=== PATIENT | female | born 1965 | race Caucasian/White ===

== ENCOUNTER 2021-03-07 11:54 | Emergency (ER) | payer SELFPAY ==
[2021-03-07 12:00] VITALS: BP 172/110; PULSE 128; RESP 20; TEMP 36.8; O2SAT 95
--- NOTE | 2021-03-07 12:23 | W.ED.GENAD ---
Discharge Plan Disposition Patient Disposition: HOME Condition: Good Discharge Details Clinical Impression: Bleeding nose Primary Care Provider: Kristen Stanton ED Provider: Darrel Forrest Home Meds and New Rx's Prescriptions: Continued iron 325 MG capsule, extended release 325 mg PO .QOD RF: 0 cyanocobalamin (vitamin B-12) 500 MCG tablet,disintegrating 500 mcg Sublingual DAILY RF: 0 ranitidine HCl 150 MG tablet 150 mg PO BID PRNQty: 180 RF: 4 ascorbate calcium (vitamin C) 500 MG tablet 500 mg PO .QOD RF: 0 magnesium oxide 500 MG capsule 500 mg PO DAILY RF: 0 ibuprofen [Advil] 200 MG tablet 400 mg PO BID PRNRF: 0 Discharge Instructions Instructions: Nosebleed (ED) Additional Instructions: At this time the bleeding in your nose has stopped after the chemical cauterization. There is a small lesion in your nose that may continue to bleed in the future. If this occurs please use the nose clamp that we provided. As we discussed it would be best to do methods to prevent future bleeding. Please wear a mask to help increase the moisture around your nose. Please place bacitracin or triple antibiotic ointment in your nose 3 times per day. Please to sleep with a humidifier at your bed, and do not point the fan at you during the night. If you have continued bleeding you may require follow-up with an ear nose throat doctor. If you notice any worsening of your symptoms, or any new symptoms such as vomiting, diarrhea, fever, chills, shortness of breath, chest pain, numbness, weakness, or fainting , please return immediately to the emergency department for reevaluation. Please follow up with your primary care provider as soon as possible for reassessment and reevaluation. As always, it was a pleasure participating in your medical care today. Referrals: Kristen Stanton MD [Primary Care Provider] - Discharge Data Discharge Date/Time-TO BE ENTERED AT DEPARTURE: 03/07/21 12:30 Medical Decision Making 55-year-old female with past medical history of nosebleeds presents today for evaluation of nosebleed. Patient states that over the last 5 weeks is has gotten hot and she has been using significant amount of the AC she has noted that she has had increased nosebleeds on the left-hand side. She works in front of a [employer], and so she also gets a significant amount of dry heat throughout the day. Occasionally the nosebleeds will be very benign, however today she noted that it was somewhat more significant. It occurred while she was in the shower and rubbing her nose. She denies any lightheadedness or syncope. She denies any history of bleeding diatheses. She denies any family history of bleeding issues. No other complaints at this time. Patient's nose demonstrates no active bleeding at this time, no persistent bleeding in the posterior oropharynx. Left nare demonstrates a small scab/irritated lesion that looks to appear to have been bleeding previously. The area was chemically cauterized with silver nitrate. No more bleeding occurred. Patient tolerated this well. Patient was observed to make sure there was no rebleeding. She did not have any. Patient stable for discharge. Recommend lifestyle modification including wiping antibiotic ointment to the nose daily, using humidifier, and avoiding dry air. Discussed red flags which to return. I have extensively reviewed the treatment plan and discharge instructions with the patient. I have addressed all patient concerns at this time. The patient was made aware of what symptoms to monitor for that would warrant a return to the emergency department. Discussed the plan with the patient, they demonstrate verbal understanding and agreement with our assessment and plan at this time. The documentation in this chart was dictated using [employer] dictation software. Please excuse any dictation errors. HPI General Date/Time Provider Initiated Documentation: 03/07/21 12:03. HPI Narrative: 55-year-old female with past medical history of nosebleeds presents today for evaluation of nosebleed. Patient states that over the last 5 weeks is has gotten hot and she has been using significant amount of the AC she has noted that she has had increased nosebleeds on the left-hand side. 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 Occasionally the nosebleeds will be very benign, however today she noted that it was somewhat more significant. It occurred while she was in the shower and rubbing her nose. She denies any lightheadedness or syncope. She denies any history of bleeding diatheses. She denies any family history of bleeding issues. No other complaints at this time. Related Data Home Medications Medication Instructions Recorded Confirmed cyanocobalamin (vitamin B-12) 500 mcg SUBLINGUAL DAILY 03/28/16 03/07/21 iron 325 mg PO .QOD 03/28/16 03/07/21 ascorbate calcium (vitamin C) 500 mg PO .QOD 06/04/17 03/07/21 ibuprofen [Advil] 400 mg PO BID PRN 06/04/17 03/07/21 magnesium oxide 500 mg PO DAILY 06/04/17 03/07/21 ranitidine HCl 150 mg PO BID PRN #180 tab 07/02/17 03/07/21 Allergies Allergy/AdvReac Type Severity Reaction Status Date / Time adhesive Allergy Unknown Unverified 03/07/21 12:04 twinings green tea Allergy Severe Anaphylaxsi Uncoded 03/07/21 12:04 s latex exam gloves Allergy rash Uncoded 03/07/21 12:04 General Stated Complaint: Epistaxis JOSE ROBERTO: 3 Review of Systems All systems reviewed & are unremarkable except as noted in HPI and below PFSH Medical History Arthritis Surgical History Appendectomy Repair of inguinal hernia Family History Grandfather Heart disease Social History Smoking/Tobacco Use Status: Current every day Smoking risk assessment performed?: Yes Alcohol Intake: never Drug use: Never Substance use type: does not use Do you feel safe at home: Yes Do you feel safe in your relationship?: Yes Exam Narrative Exam Narrative: 1.Const: Well-nourished, Well-developed, appearing stated age 2.Eyes: PERRL, no conjunctival injection, and symmetrical lids. 3.ENT: Atraumatic external nose and ears. Moist MM. Neck: Symmetric, trachea midline, No thyromegaly. Patient's nose demonstrates no active bleeding at this time, no persistent bleeding in the posterior oropharynx. Left nare demonstrates a small scab/irritated lesion that looks to appear to have been bleeding previously. The area was chemically cauterized with silver nitrate. No more bleeding occurred. Patient tolerated this well. 4.CVS: +S1/S2, No murmurs or gallops. Peripheral pulses 2+ and equal in all extremities. Brisk capillary refill in all extremities. 5.RESP: Unlabored respiratory effort. Clear to auscultation bilaterally. No wheezes rales or rhonchi 6.GI: Soft, Nontender/Nondistended, No hepatosplenomegaly. No guarding or rebound. 7.MSK: Normocephalic/Atraumatic, Extremities w/o deformity or ttp No cyanosis or clubbing, Normal movement of all extremities 8.Skin: Warm, Dry. No rashes or lesions. 9.Neuro: dispensing optician II-XII grossly intact. Sensation grossly intact, no focal neurologic deficits. 10.Psych: (AAO) x3. Appropriate mood and affect Course Vital Signs Vital signs: Vital Signs Temperature 36.8 C 03/07/21 12:00 Pulse 128 H 03/07/21 12:00 Respiratory Rate 20 03/07/21 12:00 Blood Pressure 172/110 H 03/07/21 12:00 Pulse Oximetry 95 03/07/21 12:00 Temperature 36.8 C 03/07/21 12:00 Temperature Source Skin 03/07/21 12:00 Pulse 128 H 03/07/21 12:00 Respiratory Rate 20 03/07/21 12:00 Respiratory Effort Non-Labored 03/07/21 12:04 Blood Pressure 172/110 H 03/07/21 12:00 Blood Pressure Position Sitting 03/07/21 12:00 Pulse Oximetry 95 03/07/21 12:00 Oxygen Delivery Method Room Air 03/07/21 12:00 Oxygen Flow Rate 0 03/07/21 12:00 Pain Level 0 03/07/21 12:00
[2021-03-07] MEDS: Silver Nitrate Stick 1 EACH (12:26)
[2021-03-07 12:27] VITALS: BP 142/80; PULSE 95
== END 2021-03-07 12:30 | disposition home or self-care (01) ==
PROVIDERS: Emergency Provider Student in an Organized Health Care Education/Training Program; PCP Internal Medicine
DX: R04.0 Epistaxis (principal)
CPT/HCPCS: 30901

== ENCOUNTER 2022-03-30 12:48 | Emergency (ER) | payer SELFPAY ==
[2022-03-30 13:06] VITALS: BP 167/101; PULSE 111; RESP 16; TEMP 37.1; O2SAT 94
[2022-03-30] MEDS: Silver Nitrate Stick 1 EACH (13:50)
[2022-03-30] MEDS: Cellulose,Oxidized 2X3 PKT 1 EACH MC ×2 (14:00→14:36)
[2022-03-30 14:39] LABS: Abs Immature Grans 0.01 10^3/uL (0.0-0.06); Absolute Basophil Count 0.06 10^3/uL (0.0-0.2); Absolute Eosinophil Count 0.02 10^3/uL (0.0-0.7); Absolute Lymphocyte Count 1.28 10^3/uL (1.2-3.4); Absolute Monocyte Count 0.66 10^3/uL (0.1-0.8); Absolute Neutrophil Count 6.24 10^3/uL (1.2-6.7); Basophils % 0.7; Eosinophils % 0.2; HCT 50.8 % (36.0-46.0); HGB 17.5 g/dL (11.2-15.7); Immature Grans % 0.1; Lymphocytes % 15.5; MCH 33.3 pg (27.0-33.0); MCHC 34.4 % (32.0-36.0); MCV 97 fL (80-95); MPV 9.3 fL (8.0-11.0); Neutrophils % 75.5; Platelet Count 173 10^3/uL (130-400); RBC 5.26 10^6/uL (3.93-5.22); RDW 12.8 % (11.7-14.6); RDW-SD 45.2 fL; WBC 8.27 10^3/uL (4.4-10.8)
[2022-03-30] MEDS: LORazepam 1 MG TAB PO (14:40)
[2022-03-30 14:49] LABS: BUN 11 mg/dL (7-18); CREATININE 0.7 mg/dL (0.55-1.02); Calcium 10.2 mg/dL (8.5-10.1); Chloride 102 mmol/L (98-107); Glucose 144 mg/dL (74-106); Potassium 4.4 mmol/L (3.5-5.1); Sodium 139 mmol/L (136-145)
[2022-03-30 15:43] VITALS: BP 208/133; PULSE 112
[2022-03-30 15:46] VITALS: BP 211/131; PULSE 113
[2022-03-30 16:01] VITALS: BP 213/129; PULSE 113
--- NOTE | 2022-03-30 16:01 | NUR.NOTE ---
Addendum entered by Shannon Marsh 03/30/22 16:01: Referral to be faxed Friday, to [facility] for epistaxis, needs packing removed within 72hrs. Original Note: Nursing Note: Referral faxed to [facility] for hypertension, epistaxis, within 1 week.
[2022-03-30 16:07] VITALS: BP 198/105; PULSE 111
[2022-03-30 16:12] VITALS: BP 167/101; PULSE 111; RESP 16; TEMP 37.1; O2SAT 94
--- NOTE | 2022-03-31 21:00 | ED.GENADUL_ITS ---
Discharge Plan Disposition Patient Disposition: HOME Condition: Stable Discharge Details Clinical Impression: Bleeding nose Primary Care Provider: Kristen Stanton ED Provider: Ginna Johnson Home Meds and New Rx's Prescriptions: New cephalexin 500 mg capsule 500 mg PO TID 7 Days Qty: 21 0RF Continued Curcuma NF-KB tablet 3,000 mg PO DAILY iron 325 MG capsule, extended release 325 mg PO .QOD cyanocobalamin (vitamin B-12) 500 MCG tablet,disintegrating 500 mcg Sublingual DAILY ranitidine HCl 150 MG tablet 150 mg PO BID PRNQty: 180 ascorbate calcium (vitamin C) 500 MG tablet 500 mg PO .QOD magnesium oxide 500 MG capsule 500 mg PO DAILY ibuprofen [Advil] 200 MG tablet 400 mg PO BID PRN Discharge Instructions Instructions: Nosebleed (ED) Additional Instructions: Go home and rest you will need to have this packing removed from your nose within the next 72 ho urs, if you are unable to get appointment with Dr. Dorado, please return to the emergency department and we can remove it you will be on antibiotics for 3 days while you are taking this medication purchase blood pressure cuff and check your blood pressure again when you arrive home, if it is still elevated above 180 systolic, go ahead and start amlodipine your prescribed Discharge Data Discharge Date/Time-TO BE ENTERED AT DEPARTURE: 03/30/22 16:12 Medical Decision Making Patient tolerated procedure without incident She remains hypertensive but is very anxious She was given a 1 mg tablet of Ativan Her labs do not show significant acute abnormality She will need to have the Rhino Rocket removed in approximately 72 hours, she was placed on ENT follow-up list She does not have any active bleeding at time of reassessment I attempted to cauterize the site twice, it continued to bleed and I therefore attempted Surgicel, she had persistent bleeding with and so therefore Rhino Rocket was placed with good effect No active bleeding at time of discharge home Patient does remain hypertensive, I do not think this is contributing to her bleeding She will need to recheck her blood pressure when she arrives home in the morning and start her blood pressure medication if she does remain elevated She is encouraged to follow-up with [facility] as she has previously been seen by cardiology at this facility to reestablish care She is discharged home in stable condition with stable vitals She is back on antibiotic but she does have a Rhino Rocket in place, Keflex until this packing is removed She is given low threshold to return should she have any worsening complaints Medical Records Medical records reviewed: Yes I reviewed the patient's medical records. Lab Data Lab results reviewed: Yes I reviewed the patient's lab results. HPI General Date/Time Provider Initiated Documentation: 03/30/22 13:40 . HPI Narrative: Otherwise healthy 56-year-old female presents with epistaxis at 1020 today. History of similar in the past. Works as a cook helper fruit. States she had a cauterized in the past. Was seen at urgent care and sent here after blood pressure was elevated. Given a prescription for amlodipine prior to arrival. Patient states she feels lightheaded. Denies history of coagulopathy or trauma. Related Data Home Medications Medication Instructions Recorded Confirmed cyanocobalamin (vitamin B-12) 500 500 mcg sublingual DAILY 03/28/16 03/30/22 mcg disintegrating tablet,sublingual ferrous sulfate 325 mg (65 mg 325 mg PO .QOD 03/28/16 03/30/22 iron) capsule,extended release (iron ER) ascorbate calcium (vitamin C) 500 500 mg PO .QOD 06/04/17 03/30/22 mg tablet ibuprofen 200 mg tablet (Advil) 400 mg PO BID PRN 06/04/17 03/30/22 magnesium oxide 500 mg capsule 500 mg PO DAILY 06/04/17 03/30/22 ranitidine HCl 150 mg tablet 150 mg PO BID PRN #180 tabs 07/02/17 03/30/22 Curcuma NF-KB 3,000 mg PO DAILY 08/15/21 08/15/21 cephalexin 500 mg capsule 500 mg PO TID 7 days #21 caps 03/30/22 Previous Rx's Medication Instructions Recorded cephalexin 500 mg capsule 500 mg PO TID 7 days #21 caps 03/30/22 Allergies Allergy/AdvReac Type Severity Reaction Status Date / Time adhesive Allergy Unknown Unverified 03/30/22 13:10 twinings green tea Allergy Severe Anaphylaxsi Uncoded 03/30/22 13:10 s latex exam gloves Allergy rash Uncoded 03/30/22 13:10 General Stated Complaint: Epistaxis JOSE ROBERTO: 4 Review of Systems All systems reviewed & are unremarkable except as noted in HPI and below PFSH All Active Problems (Updated 03/30/22 @ 15:52 by BENJI Rosales) History of epistaxis (Acute) Maxillary sinus mass (Acute) Bleeding nose (Acute) Active Problem List Bleeding nose (Acute) Medical History Arthritis Surgical History Appendectomy 1999 History of 1992 Repair of inguinal hernia 1998 Family History Grandfather Heart disease Social History Smoking/Tobacco Use Status: Never Smoking risk assessment performed?: Yes Alcohol Intake: current Alcohol Intake frequency: a few times a week Drug use: Never Substance use type: does not use Do you feel safe at home: Yes Do you feel safe in your relationship?: Yes Exam Const General: cooperative, comfortable and no acute distress HENMT Other: Mid anterior septum with a bleeding lesion Eyes Pupils: PERRL Resp Effort & Inspection: normal respiratory effort Auscultation: clear to auscultation bilaterally Cardio Rate: regular rate Rhythm: regular rhythm Neuro General: patient alert and patient oriented x3 Course Vital Signs Vital signs: Vital Signs Temperature 37.1 C 03/30/22 13:06 Pulse 111 H 03/30/22 13:06 Respiratory Rate 16 03/30/22 13:06 Blood Pressure 167/101 H 03/30/22 13:06 Pulse Oximetry 94 03/30/22 13:06 Temperature 37.1 C 03/30/22 16:12 Temperature Source Temporal Artery Scan 03/30/22 13:06 Pulse 111 H 03/30/22 16:12 Respiratory Rate 16 03/30/22 16:12 Respiratory Effort 03/30/22 13:09 Blood Pressure 167/101 H 03/30/22 16:12 Blood Pressure Mean 125 03/30/22 16:07 Blood Pressure Position Sitting 03/30/22 13:06 Pulse Oximetry 94 03/30/22 16:12 Oxygen Delivery Method Room Air 03/30/22 13:06 Oxygen Flow Rate 0 03/30/22 13:06 Pain Level 0 03/30/22 13:06 Lab/Test Results Lab/Test Results: Laboratory Tests Range/Units 03/30/22 03/30/22 14:27 14:27 WBC (4.4-10.8) 10^3/uL 8.27 RBC (3.93-5.22) 10^6/uL 5.26 H Hgb (11.2-15.7) g/dL 17.5 H Hct (36.0-46.0) % 50.8 H MCV (80-95) fL 97 H MCH (27.0-33.0) pg 33.3 H MCHC (32.0-36.0) % 34.4 RDW (11.7-14.6) % 12.8 Plt Count (130-400) 10^3/uL 173 MPV (8.0-11.0) fL 9.3 Immature Gran % 0.1 Neutrophils % 75.5 Lymphocytes % 15.5 Monocytes % 8.0 Eosinophils % 0.2 Basophils % 0.7 Nucleated RBC % (0.0-0.3) % 0.0 Absolute Neutrophils (1.2-6.7) 10^3/uL 6.24 Absolute Lymphocytes (1.2-3.4) 10^3/uL 1.28 Absolute Monocytes (0.1-0.8) 10^3/uL 0.66 Absolute Eosinophils (0.0-0.7) 10^3/uL 0.02 Absolute Basophils (0.0-0.2) 10^3/uL 0.06 Sodium (136-145) mmol/L 139 Potassium (3.5-5.1) mmol/L 4.4 Chloride (98-107) mmol/L 102 Carbon Dioxide (21.0-32.0) mmol/L 29.0 Anion Gap (3-11) mmol/L 8.0 BUN (7-18) mg/dL 11 Creatinine (0.55-1.02) mg/dL 0.7 Estimated GFR/1.73 m2 (mL/min/1.73m2) >= 60.00 Glucose (74-106) mg/dL 144 H Calcium (8.5-10.1) mg/dL 10.2 H Procedures Epistaxis Control Time Out Performed: Yes Nostril: left Nose Prepped With: phenylephrine Direct Inspection: yes Clots Removed by: blowing nose Cautery Used: silver nitrate Device Inserted: nasal tampon Device Size: 4 Patient Tolerated Procedure: well Complications: pain PAWSS Have you Been Recently Intoxicated or Drunk Within the Last 30 days?: Yes Have you Ever Experienced Previous Episodes of Alcohol Withdrawal?: No Have you ever Experienced Withdrawal Seizures?: No Have you ever Experienced Delirium Tremens(DT)s?: No Have you ever undergone Alcohol Rehabilitation Treatment (i.e, inpt ot outpatient treatment programs)?: No Have you ever Experienced Blackouts?: No Have you ever Combined Alcohol with other Downers within the last 90 days?: No Have you ever Combined Alcohol with any other Substance of Abuse during the last 90 days?: No Result: 1
== END 2022-03-30 16:12 | disposition home or self-care (01) ==
PROVIDERS: Emergency Provider Physician Assistant; PCP Internal Medicine
DX: R04.0 Epistaxis (principal); R03.0 Elevated blood-pressure reading, without diagnosis of hypertension
CPT/HCPCS: 30901; 36415; 80048; 99283; 85025; 99284

== ENCOUNTER 2022-10-04 15:11 | Outpatient (REF) | payer SELFPAY ==
[2022-10-04 18:30] LABS: Abs Immature Grans 0.01 10^3/uL (0.0-0.06); Absolute Basophil Count 0.07 10^3/uL (0.0-0.2); Absolute Eosinophil Count 0.08 10^3/uL (0.0-0.7); Absolute Lymphocyte Count 1.99 10^3/uL (1.2-3.4); Absolute Monocyte Count 0.77 10^3/uL (0.1-0.8); Absolute Neutrophil Count 5.42 10^3/uL (1.2-6.7); Basophils % 0.8; HCT 50.8 % (36.0-46.0); HGB 17.3 g/dL (11.2-15.7); Immature Grans % 0.1; Lymphocytes % 23.9; MCH 32.7 pg (27.0-33.0); MCHC 34.1 % (32.0-36.0); MCV 96 fL (80-95); MPV 10.5 fL (8.0-11.0); Monocytes % 9.2; Platelet Count 224 10^3/uL (130-400); RBC 5.29 10^6/uL (3.93-5.22); RDW-SD 45.9 fL; WBC 8.34 10^3/uL (4.4-10.8)
[2022-10-04 18:51] LABS: ALT 123 U/L (14-59); AST 134 U/L (15-37); Albumin 4.3 g/dL (3.4-5.0); Alkaline Phosphatase 107 U/L (46-116); Anion Gap 5.2 mmol/L (3-11); BUN 9 mg/dL (7-18); Bilirubin, Total 1.4 mg/dL (0.2-1.0); CO2 31.8 mmol/L (21.0-32.0); CREATININE 0.8 mg/dL (0.55-1.02); Calcium 10.5 mg/dL (8.5-10.1); Chloride 101 mmol/L (98-107); Estimated GFR 85.35 (mL/min/1.73m2); Glucose 129 mg/dL (74-106); Sodium 138 mmol/L (136-145); Total Protein 8.7 g/dL (6.4-8.2)
[2022-10-06 00:39] LABS: COVID-19 RT-PCR UVMMC Result Negative (Negative)
[2022-10-06 00:44] LABS: Influenza A RNA Result Negative (Negative); Influenza B RNA Result Negative (Negative); RSV RNA Result Negative (Negative)
== END 2022-10-04 15:12 | disposition home or self-care (01) ==
LOC: LBN 15:11
PROVIDERS: PCP Nurse Practitioner; Visit Provider Nurse Practitioner Family
DX: I10 Essential (primary) hypertension (principal); R00.0 Tachycardia, unspecified; R53.81 Other malaise; R53.83 Other fatigue
CPT/HCPCS: 80053; 87631; U0003; 84443; 85025

== ENCOUNTER 2022-10-14 09:15 | Outpatient (CLI) | payer SELFPAY ==
[2022-10-14 08:10] LABS: Abs Immature Grans 0.01 10^3/uL (0.0-0.06); Absolute Basophil Count 0.06 10^3/uL (0.0-0.2); Absolute Eosinophil Count 0.12 10^3/uL (0.0-0.7); Absolute Lymphocyte Count 2.15 10^3/uL (1.2-3.4); Absolute Monocyte Count 0.74 10^3/uL (0.1-0.8); Absolute Neutrophil Count 4.87 10^3/uL (1.2-6.7); Basophils % 0.8; Eosinophils % 1.5; HCT 48.4 % (36.0-46.0); HGB 16.3 g/dL (11.2-15.7); Immature Grans % 0.1; MCH 32.6 pg (27.0-33.0); MCHC 33.7 % (32.0-36.0); MCV 97 fL (80-95); MPV 9.7 fL (8.0-11.0); Monocytes % 9.3; Neutrophils % 61.3; Platelet Count 229 10^3/uL (130-400); RDW-SD 43.2 fL; WBC 7.95 10^3/uL (4.4-10.8)
[2022-10-14 09:04] LABS: ALT 95 U/L (14-59); AST 62 U/L (15-37); Albumin 4.1 g/dL (3.4-5.0); Alkaline Phosphatase 87 U/L (46-116); Anion Gap 6.9 mmol/L (3-11); BUN 8 mg/dL (7-18); Bilirubin, Total 1.3 mg/dL (0.2-1.0); CO2 29.1 mmol/L (21.0-32.0); CREATININE 0.7 mg/dL (0.55-1.02); Calcium 9.8 mg/dL (8.5-10.1); Chloride 104 mmol/L (98-107); Estimated GFR 100.19 (mL/min/1.73m2); Glucose 141 mg/dL (74-106); Potassium 3.6 mmol/L (3.5-5.1); Sodium 140 mmol/L (136-145); Total Protein 8.4 g/dL (6.4-8.2)
[2022-10-14 09:11] LABS: Bilirubin, Direct 0.4 mg/dL (0.0-0.2)
[2022-10-14 18:09] LABS: Parathyroid Hormone,Intact 54 pg/mL (19-88)
== END 2022-10-14 09:16 | disposition home or self-care (01) ==
LOC: LBO 09:16
PROVIDERS: Nurse Practitioner Family; PCP Nurse Practitioner; Visit Provider Family Medicine
DX: E83.52 Hypercalcemia (principal); R74.8 Abnormal levels of other serum enzymes; D75.1 Secondary polycythemia; R17 Unspecified jaundice
CPT/HCPCS: 36415; 80053; 82248; 83970; 85025

== ENCOUNTER 2022-10-29 02:08 | Outpatient (CLI) | payer SELFPAY ==
[2022-10-29 08:49] LABS: Hemoglobin A1C 5.9 % (<5.7)
[2022-10-29 09:08] LABS: Iron 118 ug/dL (50-170); Total Iron Binding Capacity 314 ug/dL (250-450)
[2022-10-29 09:22] LABS: Calculated LDL 167 mg/dL (<100); Cholesterol 220 mg/dL (<200); Ferritin 461 ng/mL (8-252); HDL Cholesterol 35 mg/dL (40-60); Triglyceride 91 mg/dL (<150)
[2022-10-30 12:12] LABS: HBs Antibody, Qual Negative (See Note); HBs Antibody, Quant <3.1 mIU/mL (See Note); Hepatitis B Core Antibody Negative (Negative); Hepatitis B surface Ag Negative (Negative); Hepatitis C Ab w Rflx HCV PCR Negative (Negative)
== END 2022-10-29 02:09 | disposition home or self-care (01) ==
LOC: LBO 02:08
PROVIDERS: PCP Nurse Practitioner; Visit Provider Nurse Practitioner
DX: I10 Essential (primary) hypertension (principal); R71.8 Other abnormality of red blood cells; R79.89 Other specified abnormal findings of blood chemistry
CPT/HCPCS: 36415; 80061; 86704; 86706; 86803; 87340; 82728; 83036; 83540; 83550

== ENCOUNTER 2022-12-18 02:52 | Outpatient (CLI) | payer SELFPAY ==
[2022-12-18 08:39] LABS: Abs Immature Grans 0.01 10^3/uL (0.0-0.06); Absolute Basophil Count 0.05 10^3/uL (0.0-0.2); Absolute Eosinophil Count 0.18 10^3/uL (0.0-0.7); Absolute Lymphocyte Count 2.53 10^3/uL (1.2-3.4); Absolute Monocyte Count 0.56 10^3/uL (0.1-0.8); Absolute Neutrophil Count 3.38 10^3/uL (1.2-6.7); Basophils % 0.7; Eosinophils % 2.7; HCT 43.1 % (36.0-46.0); HGB 14.8 g/dL (11.2-15.7); Immature Grans % 0.1; Lymphocytes % 37.7; MCH 31.4 pg (27.0-33.0); MCHC 34.3 % (32.0-36.0); MCV 91 fL (80-95); MPV 9.5 fL (8.0-11.0); Monocytes % 8.3; Neutrophils % 50.5; Platelet Count 255 10^3/uL (130-400); RBC 4.72 10^6/uL (3.93-5.22); RDW 13.7 % (11.7-14.6); RDW-SD 44.1 fL; WBC 6.71 10^3/uL (4.4-10.8)
[2022-12-18 08:40] LABS: ESR 10 mm/hr (0-30)
[2022-12-18 08:54] LABS: Hemoglobin A1C 5.8 % (<5.7)
[2022-12-18 09:35] LABS: ALT 39 U/L (14-59); AST 29 U/L (15-37); Albumin 3.9 g/dL (3.4-5.0); Alkaline Phosphatase 83 U/L (46-116); Ferritin 322 ng/mL (8-252); Total Protein 8.1 g/dL (6.4-8.2)
[2022-12-18 09:47] LABS: Bilirubin, Direct 0.3 mg/dL (0.0-0.2)
== END 2022-12-18 02:53 | disposition home or self-care (01) ==
LOC: LBO 02:52
PROVIDERS: PCP Nurse Practitioner; Referring Provider Nurse Practitioner; Visit Provider Nurse Practitioner
DX: I10 Essential (primary) hypertension (principal); R73.03 Prediabetes; R53.83 Other fatigue; R79.89 Other specified abnormal findings of blood chemistry; E78.5 Hyperlipidemia, unspecified
CPT/HCPCS: 36415; 80076; 85652; 82728; 83036; 85025

== ENCOUNTER 2024-06-25 02:03 | Outpatient (CLI) | payer SELFPAY ==
[2024-06-25 07:30] LABS: Hemoglobin A1C 5.1 % (<5.7)
[2024-06-25 08:13] LABS: ALT 69 U/L (14-59); AST 67 U/L (15-37); Albumin 3.9 g/dL (3.4-5.0); Alkaline Phosphatase 107 U/L (46-116); BUN 18 mg/dL (7-18); Bilirubin, Total 0.75 mg/dL (0.2-1.0); CREATININE 1.3 mg/dL (0.55-1.02); Calcium 9.6 mg/dL (8.5-10.1); Calculated LDL 151 mg/dL (<100); Chloride 102 mmol/L (98-107); Cholesterol 224 mg/dL (<200); Estimated GFR 47.37 (mL/min/1.73m2); Ferritin 331 ng/mL (8-252); Glucose 119 mg/dL (74-106); HDL Cholesterol 54 mg/dL (40-60); Potassium 3.9 mmol/L (3.5-5.1); Sodium 143 mmol/L (136-145); Total Protein 8.3 g/dL (6.4-8.2); Triglyceride 99 mg/dL (<150)
== END 2024-06-25 02:04 | disposition home or self-care (01) ==
LOC: LBO 02:03
PROVIDERS: PCP Nurse Practitioner; Visit Provider Nurse Practitioner
DX: I10 Essential (primary) hypertension (principal); E78.5 Hyperlipidemia, unspecified; R73.03 Prediabetes; R79.89 Other specified abnormal findings of blood chemistry
CPT/HCPCS: 36415; 80053; 80061; 82728; 83036

== ENCOUNTER 2025-03-21 08:54 | Inpatient (IN) | payer SELFPAY ==
[2025-03-21] VITALS (175 sets, daily range): BP systolic 71–129; BP diastolic 40–64; PULSE 70–120; RESP 12–33; TEMP 36.5–39.4; O2SAT 83–100
--- NOTE | 2025-03-21 08:59 | ED.GENADUL_ITS ---
Discharge Plan Disposition Patient Disposition: Admit to [facility] Discharge Details Clinical Impression: Acute kidney injury, Acute hypokalemia, Prolonged QT interval, Hypomagnesemia, Hypocalcemia Admit Date/Time: 03/21/25 14:19 Admit Provider: Keaton Borja Attending Provider: Keaton Borja Primary Care Provider: Erika More ED Provider: Son Santos General Date/Time Provider Initiated Documentation: 03/21/25 08:59 . HPI Narrative: MDM This is a hypotensive tachycardic 59-year-old female with abdominal pain concerning for possibility of diverticulitis versus aortic dissection versus ureteral lithiasis for which patient will undergo CT scan. No pain out of proportion to suggest necrotizing soft tissue infection. I am concerned for sepsis as patient is hypotensive and tachycardic. Will order 1 L IV fluids check lactate blood cultures and treat with vancomycin and piperacillin/tazobactam. Will also obtain troponin and ECG to assess for ACS. No shortness of breath to suggest PE. No cough to suggest pneumonia. Will obtain urinalysis. ECG showing sinus tachycardia at a rate of 102. Prolonged QTc concerning for the possibility of hypokalemia. Will add on magnesium. 11:36 AM Patient found to have significant JAMAL. Prior creatinine 1.3 currently 3.6. Patient did have an anion gap and a mild decrease in her bicarbonate but only very mild hypo and hyperglycemia. Given her hypotension and her significant JAMAL her anion gap and decreased bicarbonate is more likely secondary to renal hypoperfusion. I ordered a Lam to monitor I's and O's. She had new marked h ypokalemia with a serum potassium of 2.6.Patient was making urine so I feel she is appropriate for local hospitalization. Patient was also found to be markedly hypomagnesemic for which she will receive [address] scan was concerning for the possibility of pyelonephritis. She had no sign of ureterolithiasis. She did have a mildly enlarged liver lobe I was in touch with Dr. Borja. He graciously agreed to have patient hospitalized. She received 2 L of IV fluids along with repletion of her potassium and magnesium. Her repeat Chem-7 showed mild improvement in her JAMAL and her hypokalemia. She was also found to be hypocalcemic for which I gave her oral IV repletion. Her blood pressures improved in the ED. She had no lactic acidosis. CBC lacks anemia and leukocytosis. She does have new thrombocytopenia. She had an initial reassuring troponin. HPI The patient presents to the emergency department for evaluation of abdominal pain. She has been experiencing abdominal pain since last Friday, accompanied by cold sweats and chills. This is her first encounter with such symptoms. The severity of the pain has rendered her bedridden, unable to stand for more than a few minutes. Diarrhea started this morning. She reports no chest pain or difficulty breathing. She also reports no burning sensation during urination. Her surgical history includes an appendectomy, , and hernia repair. Exam General: Uncomfortable-appearing in no acute distress speaking in complete sentences. Head: Normocephalic, atraumatic. Eye: Extraocular eye movements intact. No conjunctival injection. No scleral icterus. Ear, nose, mouth, throat: Grossly normal inspection. Normal voice, handling secretions normally. Neck: Trachea midline. Cardiovascular: Well-perfused distal extremities. Rapid regular rate Respiratory: Nonlabored respiration. Clear lungs bilaterally Gastrointestinal: Nondistended abdomen. Soft. Distended abdomen. Diffusely tender. No rebound. No guarding Musculoskeletal: No edema. Moving all 4 extremities spontaneously. Skin: Normal for age and race, grossly normal temperature and turgor. No acute rash. Neurologic: Alert and appropriate, no apparent acute deficits. Related Data Home Medications ?Medication ?Instructions ?Recorded ?Confirmed ibuprofen 200 mg tablet (Advil) 400 mg PO BID PRN 05/1003/21/25 hydrochlorothiazide 25 mg tablet 25 mg PO DAILY #90 ta bs 06/07/24 03/21/25 losartan 100 mg tablet 100 mg PO DAILY #90 tab-caps 06/07/24 03/21/25 trazodone 50 mg tablet 50 mg PO QHS PRN sleep #90 t abs 06/07/24 03/21/25 Previous Rx's ?Medication ?Instructions ?Recorded hydrochlorothiazide 25 mg tablet 25 mg PO DAILY #90 ta bs 06/07/24 losartan 100 mg tablet 100 mg PO DAILY #90 tab-caps 06/07/24 trazodone 50 mg tablet 50 mg PO QHS PRN sleep #90 t abs 06/07/24 Allergies Allergy/AdvReac Type Severity Reaction Status Date / Time adhesive Allergy Unknown hives Verified 03/21/25 10:33 twinings green tea Allergy Severe Anaphylaxsi Uncoded 03/21/25 10:33 s latex exam gloves Allergy rash Uncoded 03/21/25 10:33 General JOSE ROBERTO: 4 Critical Care Time Critical Care Time Critical Care Time: Yes Total Critical Care Time: 60 Attestation: Bedside assessment and management of acute electrolyte derangements PFSH All Active Problems (Updated 03/21/25 @ 16:43 by Son Santos MD) Hypocalcemia (Acute) Hypomagnesemia (Acute) Prolonged QT interval (Acute) Acute hypokalemia (Acute) Acute kidney injury (Acute) Hyperlipidemia (Acute) Pre-diabetes (Acute) Elevated bilirubin (Acute) 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 Owens Gastroesophageal reflux disease (Chronic 11/01/13) Essential hypertension (Acute 06/10/17) Cystocele, midline (Acute 05/07/17) Alcohol dependence in remission (Acute 07/02/17) Abnormal transaminases (Acute 01/03/15) labs done by Dr. Owens to f/u hydroxychloroquine Hypertension (Chronic) Anterior epistaxis (Acute) History of epistaxis (Acute) Maxillary sinus mass (Acute) Bleeding nose (Acute) Medical History Arthritis Surgical History Appendectomy 1999 History of 1992 Repair of inguinal hernia 1998 Family History Grandfather Heart disease Social History Smoking/Tobacco Use Status: Never Smoking risk assessment performed?: Yes Alcohol Intake: former Drug use: Never Substance use type: does not use Housing: house Do you feel safe at home: Yes Do you feel safe in your relationship?: Yes
--- NOTE | 2025-03-21 09:15 | RT.EKG_ITS ---
APPROVED REPORT Exam: Resting ECG Reason for Exam: Abdominal pain Patient Location: E HR:102 bpm ECG Measurements Heart Rate 102 AXIS AR 146 P 35 QRSd 91 QRS 54 QT 407 T 7 QTc 531 Conclusion Sinus tachycardia...rate> 99 Prolonged QT interval...QTc >510mS No Occlusion LA
[2025-03-21 09:58] LABS: Glucose Negative (Negative)
[2025-03-21 10:06] LABS: WBC 20-50 HPF (0-5)
[2025-03-21 10:19] LABS: HCT 36.6 % (36.0-46.0); HGB 13.3 g/dL (11.2-15.7); MCH 34.5 pg (27.0-33.0); MCHC 36.3 % (32.0-36.0); MCV 95 fL (80-95); MPV 11.4 fL (8.0-11.0); Platelet Count 100 10^3/uL (130-400); RBC 3.85 10^6/uL (3.93-5.22); RDW 11.9 % (11.7-14.6); RDW-SD 42.1 fL; WBC 8.61 10^3/uL (4.4-10.8)
[2025-03-21 10:31] LABS: Abs Immature Grans 0.00 10^3/uL (0.0-0.06); Immature Grans % 0.0 %; RBC Morphology Normal
[2025-03-21] MEDS: PIPERACILLIN/TAZO 3.375 GM in Normal Saline 50 ML IVPB ×2 (10:34→18:42)
[2025-03-21] MEDS: Normal Saline 1,000 ML 1000 ML IV ×2 (10:35→11:48)
[2025-03-21 10:38] LABS: ALT 57 U/L (14-59); AST 79 U/L (15-37); Albumin 2.5 g/dL (3.4-5.0); Alkaline Phosphatase 77 U/L (46-116); Anion Gap 16.1 mmol/L (3-11); BUN 75 mg/dL (7-18); Bilirubin, Total 0.9 mg/dL (0.2-1.0); CO2 20.9 mmol/L (21.0-32.0); Calcium 8.0 mg/dL (8.5-10.1); Chloride 92 mmol/L (98-107); Estimated GFR 13.87 (mL/min/1.73m2); Glucose 117 mg/dL (74-106); Sodium 129 mmol/L (136-145); Total Protein 7.1 g/dL (6.4-8.2)
[2025-03-21 10:42] LABS: Creatine Kinase 10 U/L (26-192); Magnesium 1.1 mg/dL (1.8-2.4); Troponin I 9 ng/L (<or=51)
[2025-03-21 10:43] LABS: Potassium 2.6 mmol/L (3.5-5.1)
--- NOTE | 2025-03-21 10:46 | DI.CT_ITS ---
Exam(s) CT ABDOMEN PELVIS WO EXAM: CT ABDOMEN PELVIS WO CLINICAL HISTORY: Abdominal pain. TECHNIQUE: Imaging Protocol: Axial computed tomography images with coronal and sagittal reformatted images were created and reviewed. COMPARISON: CT CT ANGIO CHEST from 03/23/2021 FINDINGS: The lack of IV contrast does limit evaluation of the abdominal pelvic organs. ABDOMEN: Lung Bases: Normal where visualized. Liver: Normal density. There is a nonspecific 7 mm hypodensity in the left lobe of the liver. The liver has a mildly nodular contour with an enlarged left lobe raising the question of hepatic cirrhosis. Please correlate clinically. Gallbladder and biliary tract: No radiodense calculus or biliary ductal dilation. Pancreas: Normal density, no abnormal calcifications or inflammatory process. Spleen: Normal. Kidneys: Normal size, contour and axis.No radiodense stones or obstructive uropathy. No masses seen. There is new bilateral perinephric stranding present. Adrenal glands: No mass is seen. Lymph nodes: Within normal limits. Abdominal Aorta: Abdominal portion non-dilated. Atherosclerotic calcification is present. PELVIS: Bladder:Symmetric distention, no gross wall thickening. Bowel: There is colonic diverticulosis without evidence of acute diverticulitis. There is no evidence of bowel wall thickening or obstruction. No evidence of pneumatosis. The stomach is incompletely distended limiting evaluation. There is no evidence of appendicitis. Peritoneal cavity: No ascites, collection or mesenteric inflammatory response. No free air. Reproductive organs: Unremarkable as visualized. Bones: Age-appropriate degenerative changes are seen in the spine. There is L5 spondylolysis without evidence of spondylolisthesis. Soft Tissues: There is a small fat containing right inguinal hernia. There is a small fat containing umbilical hernia. IMPRESSION: 1. Bilateral perinephric stranding which can be seen with an infectious or inflammatory process such as pyelonephritis. Please correlate clinically. 2. No evidence of nephrolithiasis or hydronephrosis. 3. Colonic diverticulosis without evidence of acute diverticulitis. 4. Enlarged left lobe of the liver and a mildly nodular contour of the liver suggesting hepatic cirrhosis. RADIATION DOSE DELIVERED: 715.65mGy.cm Total DLP DATA REPOSITORY: All CT scans at this facility are submitted to the National Radiology Data Registry (NRDR) Dose Index Registry (DIR) with the [employer] (A[employer]). RADIATION OPTIMIZATION: All CT scans at this facility use at least one of these dose optimization techniques: automated exposure control; mA and/or kV adjustment per patient size (includes targeted exams where dose is matched to clinical indication); or iterative reconstruction.
[2025-03-21] MEDS: VANCOMYCIN/WATER (PEG) 1.75 GM/350 ML BAG IVPB (11:41)
[2025-03-21] MEDS: POTASSIUM CHLORIDE 10 MEQ/100 ML BAG 100 MEQ IV_INF (11:45)
[2025-03-21] MEDS: Ondansetron 4 MG/2 ML VIAL IVP (11:47)
[2025-03-21 11:57] LABS: Troponin I 8 ng/L (<or=51)
[2025-03-21] MEDS: MAGNESIUM SULFATE 2 GM/50 ML BAG IVINF (12:11)
--- NOTE | 2025-03-21 12:42 | NUR.NOTE ---
Pt has 1 L AC 18 G IV. There are 2 L AC IVs charted incorrectly Nursing Note:
--- NOTE | 2025-03-21 12:49 | NUR.NOTE ---
this rn scanned and went to administer 50 mcg fentanyl as ordered by provider. This rn had med drawn up in pocket and leaned over pt to assess IV. medication was accidentally wasted in syringe while leaning over pt in this rns pocket. This rn made Olinda wheatley and Dr Santos aware. Nursing Note:
[2025-03-21] MEDS: fentaNYL 100 MCG/2 ML VIAL 75 MCG IVP (13:21)
[2025-03-21] MEDS: Potassium Bicarbonate/Cit AC 25 MEQ TABLET.EFF 50 MEQ PO (13:22)
[2025-03-21] MEDS: Magnesium Oxide 400 MG TAB 800 MG PO (13:22)
[2025-03-21 14:04] LABS: Anion Gap 12.1 mmol/L (3-11); BUN 73 mg/dL (7-18); CO2 22.9 mmol/L (21.0-32.0); Calcium 7.2 mg/dL (8.5-10.1); Chloride 98 mmol/L (98-107); Estimated GFR 15.39 (mL/min/1.73m2); Glucose 95 mg/dL (74-106); Sodium 133 mmol/L (136-145)
[2025-03-21 14:09] LABS: Potassium 2.8 mmol/L (3.5-5.1)
[2025-03-21] MEDS: Acetaminophen 325 MG TAB PO ×2 (15:15→17:24)
[2025-03-21] MEDS: Calcium Gluconate 4.65 MEQ/10 ML VIAL 4.65 MG IVP (15:15)
[2025-03-21] MEDS: Enoxaparin 40 MG/0.4 ML SYR SC (15:15)
[2025-03-21] MEDS: Calcium Carbonate *TUMS* 500 MG CHEW PO (15:18)
--- NOTE | 2025-03-21 16:02 | NUR.NOTE ---
this rn informed Dr Butts of 103 F temp and 650 tylenol given. No further orders at this time. Nursing Note:
--- NOTE | 2025-03-21 16:12 | W.PC.ACHO ---
Registration Status: REG ER Primary Language: Preferred Language: Upper Sorbian ED Information & Data Chief Complaint Abd Prob 03/21/25 09:12 Chief Complaint Abd Prob 03/21/25 09:07 Triage Note Pt states she has been 03/21/25 09:07 unable to eat or drink x 1 week. Pt also endorses abd pain, diarrhea, fatigue, body aches, and chills since Friday. PMH: HTN Medical / Surgical History (Last Reviewed 10/04/22 @ 14:21 by Wilma Green NP) Arthritis (Last Reviewed 10/04/22 @ 14:21 by Wilma Green NP) History of Repair of inguinal hernia Appendectomy Most Recent Vital Signs Temperature 39.4 C H 03/21/25 15:20 Temperature Source Oral 03/21/25 14:15 Pulse 107 H 03/21/25 16:01 Pulse 110 H 03/21/25 16:01 Respiratory Rate 21 03/21/25 16:01 Blood Pressure 91/54 L 03/21/25 16:01 Blood Pressure Mean 65 03/21/25 16:01 Blood Pressure Position Supine 03/21/25 10:51 Pulse Oximetry 94 03/21/25 16:01 Oxygen Delivery Method Room Air 03/21/25 10:51 Oxygen Flow Rate 0 03/21/25 09:07 Pain Level 7 03/21/25 13:21 Comment informed admitting provider 03/21/25 15:20 Allergies adhesive Allergy (Unknown, Verified 03/21/25 10:33) hives twinings green tea Allergy (Severe, Uncoded 03/21/25 10:33) Anaphylaxsis latex exam gloves Allergy (Uncoded 03/21/25 10:33) rash Active Medications Generic Name Dose Route Start Last Admin Trade Name Freq PRN Reason Stop Dose Admin Acetaminophen 0 mg 03/21/25 14:19 03/21/25 15:15 Acetaminophen 325 Mg Tab PO 650 mg Q4H PRN PRN Administration Enoxaparin Sodium 40 mg 03/21/25 15:00 03/21/25 15:15 Enoxaparin 40 Mg/0.4 Ml Syr SC 40 mg Q24H [id number] Administration IV IV Catheter Type [Right Peripheral IV Antecubital] IV Catheter Type [Left Peripheral IV Antecubital] IV Catheter Gauge [Right 18 Antecubital] IV Catheter Gauge [Left 18 Antecubital] Diet Orders Category Date Time Status Regular/Normal [DIET] Nutrition 03/21/25 Dinner Active Diagnostics 03/21/25 03/21/25 03/21/25 Range/Units 13:29 12:22 11:11 WBC (4.4-10.8) 10^3/uL RBC (3.93-5.22) 10^6/uL Hgb (11.2-15.7) g/dL Hct (36.0-46.0) % MCV (80-95) fL MCH (27.0-33.0) pg MCHC (32.0-36.0) % RDW (11.7-14.6) % Plt Count (130-400) 10^3/uL MPV (8.0-11.0) fL Immature Gran % % Neutrophils % % Lymphocytes % % Monocytes % % Eosinophils % % Basophils % % Nucleated RBC % (0.0-0.3) % Absolute Neutrophils (1.2-6.7) 10^3/uL Absolute Lymphocytes (1.2-3.4) 10^3/uL Absolute Monocytes (0.1-0.8) 10^3/uL Absolute Eosinophils (0.0-0.7) 10^3/uL Absolute Basophils (0.0-0.2) 10^3/uL RBC Morphology VBG Lactate (<or=2.0) mmol/L Sodium 133 L (136-145) mmol/L Potassium 2.8 L* (3.5-5.1) mmol/L Chloride 98 (98-107) mmol/L Carbon Dioxide 22.9 (21.0-32.0) mmol/L Anion Gap 12.1 H (3-11) mmol/L BUN 73 H (7-18) mg/dL Creatinine 3.3 H (0.55-1.02) mg/dL Est GFR (CKD-EPI 2020) 15.39 (mL/min/1.73m2) Glucose 95 (74-106) mg/dL Calcium 7.2 L (8.5-10.1) mg/dL Magnesium (1.8-2.4) mg/dL Total Bilirubin (0.2-1.0) mg/dL AST (15-37) U/L ALT (14-59) U/L Alkaline Phosphatase (46-116) U/L Creatine Kinase (26-192) U/L Troponin I Cancelled 8 (<or=51) ng/L Total Protein (6.4-8.2) g/dL Albumin (3.4-5.0) g/dL Urine Color (Yellow) Urine Clarity (Clear) Urine pH (5-8) Ur Specific [place] (1.005-1.025) Urine Protein (Neg-Trace) mg/dL Urine Ketones (Negative) mg/dL Urine Blood (Negative) Urine Nitrite (Negative) Urine Bilirubin (Negative) Urine Urobilinogen (Up to 0.2) mg/dL Ur Leukocyte Esterase (Negative) Urine RBC (0-2) HPF Urine WBC (0-5) HPF Ur Epithelial Cells (Negative) HPF Urine Crystals (Negative) HPF Urine Bacteria (Negative) HPF Urine Casts (Negative) LPF Urine Mucus (Negative) Urine Other (Negative) Ur Culture Indicated? Urine Glucose (Negative) mg/dL ABO/Rh Antibody Screen 03/21/25 03/21/25 03/21/25 Range/Units 10:40 10:09 09:44 WBC 8.61 (4.4-10.8) 10^3/uL RBC 3.85 L (3.93-5.22) 10^6/uL Hgb 13.3 (11.2-15.7) g/dL Hct 36.6 (36.0-46.0) % MCV 95 (80-95) fL MCH 34.5 H (27.0-33.0) pg MCHC 36.3 H (32.0-36.0) % RDW 11.9 (11.7-14.6) % Plt Count 100 L (130-400) 10^3/uL MPV 11.4 H (8.0-11.0) fL Immature Gran % 0.0 % Neutrophils % 86.0 % Lymphocytes % 5.0 % Monocytes % 9.0 % Eosinophils % 0.0 % Basophils % 0.0 % Nucleated RBC % 0.0 (0.0-0.3) % Absolute Neutrophils 7.40 H (1.2-6.7) 10^3/uL Absolute Lymphocytes 0.43 L (1.2-3.4) 10^3/uL Absolute Monocytes 0.77 (0.1-0.8) 10^3/uL Absolute Eosinophils 0.00 (0.0-0.7) 10^3/uL Absolute Basophils 0.00 (0.0-0.2) 10^3/uL RBC Morphology Normal VBG Lactate 1.5 (<or=2.0) mmol/L Sodium 129 L (136-145) mmol/L Potassium 2.6 L* (3.5-5.1) mmol/L Chloride 92 L (98-107) mmol/L Carbon Dioxide 20.9 L (21.0-32.0) mmol/L Anion Gap 16.1 H (3-11) mmol/L BUN 75 H (7-18) mg/dL Creatinine 3.6 H* (0.55-1.02) mg/dL Est GFR (CKD-EPI 2020) 13.87 (mL/min/1.73m2) Glucose 117 H (74-106) mg/dL Calcium 8.0 L (8.5-10.1) mg/dL Magnesium 1.1 L (1.8-2.4) mg/dL Total Bilirubin 0.9 (0.2-1.0) mg/dL AST 79 H (15-37) U/L ALT 57 (14-59) U/L Alkaline Phosphatase 77 (46-116) U/L Creatine Kinase 10 L (26-192) U/L Troponin I 9 (<or=51) ng/L Total Protein 7.1 (6.4-8.2) g/dL Albumin 2.5 L (3.4-5.0) g/dL Urine Color Yellow (Yellow) Urine Clarity Cloudy (Clear) Urine pH 5.5 (5-8) Ur Specific [place] 1.015 (1.005-1.025) Urine Protein >=300 H (Neg-Trace) mg/dL Urine Ketones Negative (Negative) mg/dL Urine Blood Moderate H (Negative) Urine Nitrite Negative (Negative) Urine Bilirubin Negative (Negative) Urine Urobilinogen 0.2 (Up to 0.2) mg/dL Ur Leukocyte Esterase Small H (Negative) Urine RBC 10-20 H (0-2) HPF Urine WBC 20-50 H (0-5) HPF Ur Epithelial Cells Many (Negative) HPF Urine Crystals Few Amorphous (Negative) HPF Urine Bacteria Few (Negative) HPF Urine Casts 10-20 Fine Granular (Negative) LPF Urine Mucus Trace (Negative) Urine Other Few Renal (Negative) Ur Culture Indicated? No/Sq. Contamination Urine Glucose Negative (Negative) mg/dL ABO/Rh B Positive Antibody Screen NEGATIVE 03/21/25 10:40 Blood Culture - Pending Blood 03/21/25 10:09 Blood Culture - Pending Blood Intake and Output - 24 Hour Total 03/21/25 08:54 thru 03/21/25 14:15 Intake Total 2200 Output Total 200 Balance 2000 Weight 81.647 kg Intake: IV 2200 Output: Urine 200 Other: Urine Color Yellow Urine Appearance Clear Urinary Catheter Urinary Catheter Date of 03/21/25 Insertion [Urethral (Lam)] Time of insertion [Urethral ( 11:45 Lam)] Falls Risk Assessment History of Falls No History 03/21/25 10:51 Contributing Factors No Factors 03/21/25 10:51 Ambulatory Aids Independent 03/21/25 10:51 Tubes/Lines None 03/21/25 10:51 Gait Evaluation W/no contributing factors 03/21/25 10:51 Cognition No cognitive impairment 03/21/25 10:51 Fall Total Score 10 03/21/25 10:51 Level of Risk Standard/Low Risk 03/21/25 10:51 Problems (Last Reviewed 10/04/22 @ 14:21 by Wilma Green NP) Hypomagnesemia (Acute) Prolonged QT interval (Acute) Acute hypokalemia (Acute) Acute kidney injury (Acute) Notes 03/21/25 16:02 Nursing Notes by Leelee Larsen this rn informed Dr Butts of 103 F temp and 650 tylenol given. No further orders at this time. Nursing Note: Initialized on 03/21/25 16:02 - END OF NOTE 03/21/25 12:49 Nursing Notes by Leelee Larsen this rn scanned and went to administer 50 mcg fentanyl as ordered by provider. This rn had med drawn up in pocket and leaned over pt to assess IV. medication was accidentally wasted in syringe while leaning over pt in this rns pocket. This rn made Olinda wheatley and Dr Santos aware. Nursing Note: Initialized on 03/21/25 12:49 - END OF NOTE v v v v v v v v v Sending and/or Receiving Nurses: Please use comment section below to note any information pertinent to the patient hand-off not included above. Information / Comments: Report received from:ALEJANDRO Mckoy All questions answered
[2025-03-21] MEDS: POTASSIUM CHLORIDE/0.45% NACL 1,000 ML 100 MEQ IV (16:45)
--- NOTE | 2025-03-21 18:04 | W.PM.HP.N ---
Date of service: 03/21/25 Time of Service: 18:04 Assessment and Plan Assessment and plan (1) Acute kidney injury: Status: Acute Assessment and plan: cw ivf, recheck labs in am. Prerenal most likely with nv (2) Acute hypokalemia: Status: Acute Assessment and plan: most likely 2/2 nv add zofran prn (3) Hypomagnesemia: Status: Acute Assessment and plan: replace (4) Pyelonephritis: Status: Acute Assessment and plan: vanc and zosyn. Pharmacy consult pending History of Present Illness History of Present Illness Chief Complaint: n/v Narrative: This is a 59-year-old female who presents to the ED with multiple episodes of nausea and vomiting. While she was in the ED she was noted to have significant elevations in her BUN and creatinine was admitted for acute kidney injury. While she was also in the ED CT was done of her abdomen which indicated pyelonephritis and while she was down there she was treated with IV fluids as well as antibiotics. Upon my interview with her she stated she did have some fevers and chills. Patient denied significant abdominal pain though. Patient denied any dysuria or polyuria as well. In reviewing her diagnostic data her white count is 8.6 her sodium 133 potassium 2.8 BUN and creatinine 73 and 2.3 respectively. On the doctor over 24 hours. Creatinine 1.3. Magnesium was low at 1.1. Mild transaminitis was noted significant proteinuria was noted as well as blood small leukocyte esterase as well. In terms of imaging abdominal pelvic CT as mentioned showed pyelonephritis blood cultures are pending. 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 Owens Gastroesophageal reflux disease (Chronic 11/01/13) Essential hypertension (Acute 06/10/17) Cystocele, midline (Acute 05/07/17) Alcohol dependence in remission (Acute 07/02/17) Abnormal transaminases (Acute 01/03/15) labs done by Dr. Owens to f/u hydroxychloroquine Hypertension (Chronic) Anterior epistaxis (Acute) History of epistaxis (Acute) Maxillary sinus mass (Acute) Bleeding nose (Acute) Medical History Arthritis Surgical History Appendectomy 1999 History of 1992 Repair of inguinal hernia 1999 Family History Grandfather Heart disease Social History Smoking/Tobacco Use Status: Never Smoking risk assessment performed?: Yes Alcohol Intake: former Drug use: Never Substance use type: does not use Housing: house Do you feel safe at home: Yes Do you feel safe in your relationship?: Yes Meds Allergies and Home Medications Allergies Allergy/AdvReac Type Severity Reaction Status Date / Time adhesive Allergy Unknown hives Verified 03/21/25 10:33 twinings green tea Allergy Severe Anaphylaxsi Uncoded 03/21/25 10:33 s latex exam gloves Allergy rash Uncoded 03/21/25 10:33 Home Medications ?Medication ?Instructions ?Recorded ?Confirmed ?Type ibuprofen 200 mg tablet (Advil) 400 mg PO BID PRN 06/04/17 03/21/25 History hydrochlorothiazide 25 mg tablet 25 mg PO DAILY #90 tabs 06/07/24 03/21/25 Rx losartan 100 mg tablet 100 mg PO DAILY #90 tab-caps 06/07/24 03/21/25 Rx trazodone 50 mg tablet 50 mg PO QHS PRN sleep #90 tabs 06/07/24 03/21/25 Rx Exam Narrative Exam Narrative: Exam General: Uncomfortable-appearing in no acute distress speaking in complete sentences. Head: Normocephalic, atraumatic. Eye: Extraocular eye movements intact. No conjunctival injection. No scleral icterus. Ear, nose, mouth, throat: Grossly normal inspection. Normal voice, handling secretions normally. Neck: Trachea midline. Cardiovascular: Well-perfused distal extremities. Rapid regular rate Respiratory: Nonlabored respiration. Clear lungs bilaterally Gastrointestinal: Nondistended abdomen. Soft. Distended abdomen. Diffusely tender. No rebound. No guarding Musculoskeletal: No edema. Moving all 4 extremities spontaneously. Skin: Normal for age and race, grossly normal temperature and turgor. No acute rash. Neurologic: Alert and appropriate, no apparent acute deficits. Results Labs 03/21/25 10:09 03/21/25 13:29 Labs: Laboratory Results - last 24 hr 03/21/25 03/21/25 03/21/25 09:44 10:09 10:40 WBC 8.61 RBC 3.85 L Hgb 13.3 Hct 36.6 MCV 95 MCH 34.5 H MCHC 36.3 H RDW 11.9 Plt Count 100 L MPV 11.4 H Immature Gran % 0.0 Neutrophils % 86.0 Lymphocytes % 5.0 Monocytes % 9.0 Eosinophils % 0.0 Basophils % 0.0 Nucleated RBC % 0.0 Absolute Neutrophils 7.40 H Absolute Lymphocytes 0.43 L Absolute Monocytes 0.77 Absolute Eosinophils 0.00 Absolute Basophils 0.00 RBC Morphology Normal VBG Lactate 1.5 Sodium 129 L Potassium 2.6 L* Chloride 92 L Carbon Dioxide 20.9 L Anion Gap 16.1 H BUN 75 H Creatinine 3.6 H* Est GFR (CKD-EPI 2020) 13.87 Glucose 117 H Calcium 8.0 L Magnesium 1.1 L Total Bilirubin 0.9 AST 79 H ALT 57 Alkaline Phosphatase 77 Creatine Kinase 10 L Troponin I 9 Total Protein 7.1 Albumin 2.5 L Urine Color Yellow Urine Clarity Cloudy Urine pH 5.5 Ur Specific [place] 1.015 Urine Protein >=300 H Urine Ketones Negative Urine Blood Moderate H Urine Nitrite Negative Urine Bilirubin Negative Urine Urobilinogen 0.2 Ur Leukocyte Esterase Small H Urine RBC 10-20 H Urine WBC 20-50 H Ur Epithelial Cells Many Urine Crystals Few Amorphous Urine Bacteria Few Urine Casts 10-20 Fine Granular Urine Mucus Trace Urine Other Few Renal Ur Culture Indicated? No/Sq. Contamination Urine Glucose Negative ABO/Rh B Positive Antibody Screen NEGATIVE 03/21/25 03/21/25 03/21/25 11:11 12:22 13:29 WBC RBC Hgb Hct MCV MCH MCHC RDW Plt Count MPV Immature Gran % Neutrophils % Lymphocytes % Monocytes % Eosinophils % Basophils % Nucleated RBC % Absolute Neutrophils Absolute Lymphocytes Absolute Monocytes Absolute Eosinophils Absolute Basophils RBC Morphology VBG Lactate Sodium 133 L Potassium 2.8 L* Chloride 98 Carbon Dioxide 22.9 Anion Gap 12.1 H BUN 73 H Creatinine 3.3 H Est GFR (CKD-EPI 2020) 15.39 Glucose 95 Calcium 7.2 L Magnesium Total Bilirubin AST ALT Alkaline Phosphatase Creatine Kinase Troponin I 8 Cancelled Total Protein Albumin Urine Color Urine Clarity Urine pH Ur Specific [place] Urine Protein Urine Ketones Urine Blood Urine Nitrite Urine Bilirubin Urine Urobilinogen Ur Leukocyte Esterase Urine RBC Urine WBC Ur Epithelial Cells Urine Crystals Urine Bacteria Urine Casts Urine Mucus Urine Other Ur Culture Indicated? Urine Glucose ABO/Rh Antibody Screen Last Vital Signs Temp 37.4 C 03/21/25 16:51 Pulse 107 H 03/21/25 16:01 Resp 21 03/21/25 16:01 BP 93/58 L 03/21/25 16:51 Pulse Ox 95 03/21/25 16:51 Time Spent Time spent with Patient: 40-54 minutes Time was spent: preparing to see the patient(eg.review tests), obtaining and/or reviewing separately otained hiistory, ordering medications,tests, procedures, referring, communicating with other health career developer, indepentently interpreting results, counseling the patient and care coordination
[2025-03-21] MEDS: Lactated Ringers 1,000 ML 150 ML IV (19:16)
[2025-03-21] MEDS: Lactated Ringers 1,000 ML 1000 ML IV (20:42)
[2025-03-21] MEDS: Heparin 5,000 UNITS/ML VIAL 5000 UNITS SC (20:44)
[2025-03-21] MEDS: Magnesium Oxide 400 MG TAB PO (20:44)
[2025-03-21] MEDS: Potassium Chloride 10 MEQ TABCR PO (20:44)
[2025-03-22] VITALS (73 sets, daily range): BP systolic 84–117; BP diastolic 56–80; PULSE 70–104; RESP 12–47; TEMP 37.1–38; O2SAT 93–98
--- NOTE | 2025-03-22 | DI.RAD_ITS ---
Exam(s) XR PORTABLE CHEST AP EXAM: XR PORTABLE CHEST AP CLINICAL HISTORY: chf. TECHNIQUE: 2D digital imaging was performed. COMPARISON: CT CT ABDOMEN PELVIS WO from 03/21/2025 FINDINGS: Single AP portable view. Chest leads in place Heart size is upper normal. The mediastinum is not widened. Right lung is clear. There is platelike atelectasis in the lingular segment of the left lung. No pleural effusions. No pulmonary edema. No pneumothorax. No fractures evident. IMPRESSION: There is platelike atelectasis noted in lingular segment of the left lung. No other obvious focal pulmonary findings on this single AP portable view of the chest. DATA REPOSITORY: RADIATION DOSE DELIVERED:
[2025-03-22] MEDS: Lactated Ringers 1,000 ML 150 ML IV ×4 (00:03→20:03)
[2025-03-22] MEDS: Acetaminophen 325 MG TAB PO ×3 (00:10→16:25)
[2025-03-22] MEDS: POTASSIUM CHLORIDE/0.45% NACL 1,000 ML 100 MEQ IV ×3 (02:18→23:16)
[2025-03-22 06:43] LABS: Abs Immature Grans 0.05 10^3/uL (0.0-0.06); HCT 33.7 % (36.0-46.0); HGB 12.0 g/dL (11.2-15.7); MCH 33.7 pg (27.0-33.0); MCHC 35.6 % (32.0-36.0); MCV 95 fL (80-95); MPV 11.3 fL (8.0-11.0); Platelet Count 100 10^3/uL (130-400); RBC 3.56 10^6/uL (3.93-5.22); RDW 12.0 % (11.7-14.6); RDW-SD 42.0 fL; WBC 6.67 10^3/uL (4.4-10.8)
[2025-03-22 07:04] LABS: ALT 56 U/L (14-59); AST 73 U/L (15-37); Albumin 2.0 g/dL (3.4-5.0); Alkaline Phosphatase 68 U/L (46-116); Anion Gap 12.9 mmol/L (3-11); BUN 69 mg/dL (7-18); Bilirubin, Total 0.8 mg/dL (0.2-1.0); CO2 21.1 mmol/L (21.0-32.0); Calcium 7.7 mg/dL (8.5-10.1); Chloride 102 mmol/L (98-107); Estimated GFR 16.59 (mL/min/1.73m2); Glucose 100 mg/dL (74-106); Potassium 3.2 mmol/L (3.5-5.1); Sodium 136 mmol/L (136-145); Total Protein 6.0 g/dL (6.4-8.2)
[2025-03-22 07:50] LABS: RBC Morphology Normal
[2025-03-22 07:51] LABS: Immature Grans % 0.0 %
--- NOTE | 2025-03-22 08:14 | W.NUTRFU ---
Date of service: 03/22/25 Time of Service: 08:14 Nutrition Note NOTE: 59yo female admitted for acute kidney injury with hypokalemia (IV K administered yesterday and 10meq BID ordered po), hypomagnesemia (IV MAg yesterday and 400mg MagOx BID ordered po), and pyelonephritis - ABX ordred. PMH significant for prediabetes, HLD, GERD, HTN and stage 1 obesity per current BMI. Calcium lab low at 7.7 today. Total protein and albumin labs low today - will offer clear liquid boost for extra protein, as well as banatrol supplement if desired to help with diarrhea. Weight hx shows increase over 2 years. Nutrition Dx: inadequate intake related to acute illness as evidenced by patient hx of minimal po intake of food and fluids over the last week, low albumin and total protein labs and nausea/vomiting/diarrhea. Intervention: Suggest vitamin D lab d/t low calcium advance diet as tolerated Monitoring: will monitor intake, diet toleration, weight, nutrition-related labs. Time Spent in Nutritional Counseling and Treatment: 0
[2025-03-22 08:38] LABS: Vancomycin, Random 18.1 ug/mL
--- NOTE | 2025-03-22 08:42 | INITIAL_ITS ---
Date of service: 03/22/25 Time of Service: 08:42 Care Management Initial Assmt Initial Assessment Reason for Hospitalization: JAMAL Functional Status/Living Situation Patient Presentation: Maggi was sitting up in a chair when CM met with her. She was alert, oriented and polite, easily engaging with CM. Maggi was admitted with Jamal and electrolyte abnormalities. Her creatinine was 3.6 with a baseline of 1.3. She was also hypokalemic and hyponatremic with a K of 2.6 and Na of 129. An abdominal CT scan showed pyelonephritis. Maggi did have a fever of 39.4 last evening and she has been hypotensive with SBP in the 80s. Maggi lives in [place] with her Leo. 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 They have 3 children 2 sons and a daughter. One son and their daughter live in [place] and their other son is in the [employer] [facility], stationed at [place]. Maggi is independent at baseline and does not receive any community services. When asked, she admiited that she does not have any healthcare insurance. She stated that they make too much money for medicaid and have chosen not to pursue private insurance. CM asked about [facility] Patient Financial Assistance and Maggi requested an application, which was provided. Town of Residence: [place] Resides with: Spouse ( Leo) Significant Other/Family: Local Natural Supports: and children Employment Status: Employed (family owns their own business [employer] in [place]) Instrumental Activities of Daily Living (ADLs): Independent Medications Medication Management: No Issues/Barriers identified Physical Functioning/Mobility Assistive Device: none Advance Directives Advance Directives: Do you have an Advance Directive: N , 09:29 AD On File at [facility]: N 11/11/22, 09:29 Date Asked 03/21/25 03/21/25, 09:10 AD Date Reviewed COLST On File at [facility] COLST Date Scanned Code Status Resuscitation Status Full Code Portal Pt does not currently have a portal and education provided: Yes Insurance Coverage/Financial Issues Insurance: none Care Team Visit Care Team Role Provider Type Erika More NP Primary Care Provider NURSE PRACTITIONER Son Santos MD Emergency Provider [facility] STAFF PHYSICIAN Keaton Borja MD Admit Provider [facility] STAFF PHYSICIAN Attending Provider Discharge Potential Discharge Needs: PCP F/U Appt Anticipated Barriers to Discharge: None Identified Patient/Family Education Needs: Review discharge instructions, discuss Ask Me Three Transportation: Private vehicle Plan: Anticipate Maggi will be discharged home with no new services when medically cleared. She will follow up with her PCP and plan of care and transport with family. CM will follow and continue to assess for discharge planning concerns. Social Determinants of Health Screening Social Determinants of health last assessed in clinic: 03/22/25 Will the Patient Participate in the Screening?: Yes Do you worry about having a steady place to live?: no Problems where you live: no known problems In the past 12 months, have you had to go without electric, gas, oil or water in your home?: no 1. Within the past 12 months, we worried whether our food would run out before we got money to buy more.: Never true 2. Within the past 12 months, the food we bought just didn't last and we didn't have money to get more.: Never true Has lack of transportation kept you from medical appointments or from doing things needed for daily living?: no Has anyone in your life made you feel unsafe or unsupported?: no How hard is it for you to pay for the very basics like food, housing, medical care, and heating? Would you say it is:: Not hard at all Do you want help finding or keeping work or a job?: I do not need or want help If for any reason you need help with day-to-day activities such as bathing, preparing meals, shopping, managing finances, etc., do you get the help you need?: I don?t need any help How often do you feel lonely or isolated from those around you?: Never Do you speak a language other than Moroccan at home?: No Does the patient want assistance with any of the above?: No PFSH All Active Problems (Updated 03/21/25 @ 18:09 by Keaton Borja MD) Pyelonephritis (Acute) Hypocalcemia (Acute) Hypomagnesemia (Acute) Prolonged QT interval (Acute) Acute hypokalemia (Acute) Acute kidney injury (Acute) Hyperlipidemia (Acute) Pre-diabetes (Acute) Elevated bilirubin (Acute) 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 Owens Gastroesophageal reflux disease (Chronic 11/01/13) Essential hypertension (Acute 06/10/17) Cystocele, midline (Acute 05/07/17) Alcohol dependence in remission (Acute 07/02/17) Abnormal transaminases (Acute 01/03/15) labs done by Dr. Owens to f/u hydroxychloroquine Hypertension (Chronic) Anterior epistaxis (Acute) History of epistaxis (Acute) Maxillary sinus mass (Acute) Bleeding nose (Acute) Medical History Arthritis Surgical History Appendectomy 1999 History of 1992 Repair of inguinal hernia 1998 Family History Grandfather Heart disease Social History Smoking/Tobacco Use Status: Never Smoking risk assessment performed?: Yes Alcohol Intake: former Drug use: Never Substance use type: does not use Housing: house Do you feel safe at home: Yes Do you feel safe in your relationship?: Yes
[2025-03-22] MEDS: Potassium Chloride 10 MEQ TABCR PO ×2 (08:51→20:05)
[2025-03-22] MEDS: Heparin 5,000 UNITS/ML VIAL 5000 UNITS SC ×2 (08:51→20:07)
[2025-03-22] MEDS: Magnesium Oxide 400 MG TAB PO ×2 (08:51→20:05)
--- NOTE | 2025-03-22 15:12 | W.PM.PROGNOT ---
Date of Service Date of service: 03/22/25 Time of Service: 14:00 Objective Last Vital Signs Temp 37.1 C 03/22/25 13:05 Pulse 74 03/22/25 13:05 Resp 26 H 03/22/25 13:05 BP 87/57 L 03/22/25 13:05 Pulse Ox 97 03/22/25 13:05 Laboratory Results - last 24 hr 03/22/25 05:42 WBC 6.67 RBC 3.56 L Hgb 12.0 Hct 33.7 L MCV 95 MCH 33.7 H MCHC 35.6 RDW 12.0 Plt Count 100 L MPV 11.3 H Immature Gran % 0.0 Neutrophils % 76.0 Band Neutrophils % 6 Lymphocytes % 12.0 Atypical Lymphs % 0 Monocytes % 6.0 Eosinophils % 0.0 Basophils % 0.0 Nucleated RBC % 0.0 Absolute Neutrophils 5.47 Absolute Lymphocytes 0.80 L Absolute Monocytes 0.40 Absolute Eosinophils 0.00 Absolute Basophils 0.00 RBC Morphology Normal Sodium 136 Potassium 3.2 L Chloride 102 Carbon Dioxide 21.1 Anion Gap 12.9 H BUN 69 H Creatinine 3.1 H Est GFR (CKD-EPI 2020) 16.59 Glucose 100 Calcium 7.7 L Total Bilirubin 0.8 AST 73 H ALT 56 Alkaline Phosphatase 68 Total Protein 6.0 L Albumin 2.0 L Random Vancomycin 18.1 Time Spent with Patient Time Spent with Patient: <25 minutes Time was spent: preparing to see the patient(eg.review tests), obtaining and/or reviewing separately otained hiistory, ordering medications,tests, procedures, referring, communicating with other health memory care program resident, indepentently interpreting results, counseling the patient and care coordination
--- NOTE | 2025-03-22 15:49 | PGE_ITS ---
Date of Service Date of service: 03/22/25 Time of Service: 15:49 Assessment and Plan Assessment and plan (1) Acute kidney injury: Status: Acute Assessment and plan: cw ivf, recheck labs in am. Prerenal most likely with nv 03/22/25 There is some concern about prerenal issues and I will order a BNP and pending this result will consider echo. Has improved, but would expect better improvement (2) Acute hypokalemia: Status: Acute Assessment and plan: most likely 2/2 nv add zofran prn 03/22/25 has improved to 3.2 (3) Hypomagnesemia: Status: Acute Assessment and plan: replace (4) Pyelonephritis: Status: Acute Assessment and plan: vanc and zosyn. Pharmacy consult pending 03/22/25 vanc and zosyn. GNR pending sensitivities Subjective Subjective Interval history since last seen: Pt seen and examined in the ICU. Pt has improved but slowly Exam Narrative Exam Narrative: Exam General: Uncomfortable-appearing in no acute distress speaking in complete sentences. Head: Normocephalic, atraumatic. Eye: Extraocular eye movements intact. No conjunctival injection. No scleral icterus. Ear, nose, mouth, throat: Grossly normal inspection. Normal voice, handling secretions normally. Neck: Trachea midline. Cardiovascular: Well-perfused distal extremities. Rapid regular rate Respiratory: Nonlabored respiration. Clear lungs bilaterally Gastrointestinal: Nondistended abdomen. Soft. Distended abdomen. Diffusely tender. No rebound. No guarding Musculoskeletal: No edema. Moving all 4 extremities spontaneously. Skin: Normal for age and race, grossly normal temperature and turgor. No acute rash. Neurologic: Alert and appropriate, no apparent acute deficits. Objective Last Vital Signs Temp 37.1 C 03/22/25 13:05 Pulse 74 03/22/25 13:05 Resp 26 H 03/22/25 13:05 BP 87/57 L 03/22/25 13:05 Pulse Ox 97 03/22/25 13:05 Laboratory Results - last 24 hr 03/22/25 05:42 WBC 6.67 RBC 3.56 L Hgb 12.0 Hct 33.7 L MCV 95 MCH 33.7 H MCHC 35.6 RDW 12.0 Plt Count 100 L MPV 11.3 H Immature Gran % 0.0 Neutrophils % 76.0 Band Neutrophils % 6 Lymphocytes % 12.0 Atypical Lymphs % 0 Monocytes % 6.0 Eosinophils % 0.0 Basophils % 0.0 Nucleated RBC % 0.0 Absolute Neutrophils 5.47 Absolute Lymphocytes 0.80 L Absolute Monocytes 0.40 Absolute Eosinophils 0.00 Absolute Basophils 0.00 RBC Morphology Normal Sodium 136 Potassium 3.2 L Chloride 102 Carbon Dioxide 21.1 Anion Gap 12.9 H BUN 69 H Creatinine 3.1 H Est GFR (CKD-EPI 2020) 16.59 Glucose 100 Calcium 7.7 L Total Bilirubin 0.8 AST 73 H ALT 56 Alkaline Phosphatase 68 Total Protein 6.0 L Albumin 2.0 L Random Vancomycin 18.1 Time Spent with Patient Time Spent with Patient: 25-34 minutes Time was spent: preparing to see the patient(eg.review tests), obtaining and/or reviewing separately otained hiistory, ordering medications,tests, procedures, referring, communicating with other health resident care provider, indepentently interpreting results, counseling the patient and care coordination
[2025-03-23] VITALS (19 sets, daily range): BP systolic 119–124; BP diastolic 75–82; PULSE 67–91; RESP 16–27; TEMP 37.3–37.6; O2SAT 95
[2025-03-23] MEDS: Lactated Ringers 1,000 ML 150 ML IV (02:55)
[2025-03-23 07:14] LABS: Abs Immature Grans 0.03 10^3/uL (0.0-0.06); HCT 34.1 % (36.0-46.0); HGB 12.4 g/dL (11.2-15.7); Immature Grans % 0.4 %; MCH 34.9 pg (27.0-33.0); MCHC 36.4 % (32.0-36.0); MCV 96 fL (80-95); MPV 11.4 fL (8.0-11.0); Platelet Count 115 10^3/uL (130-400); RBC 3.55 10^6/uL (3.93-5.22); RDW 12.4 % (11.7-14.6); RDW-SD 43.8 fL; WBC 6.84 10^3/uL (4.4-10.8)
[2025-03-23 07:40] LABS: ALT 60 U/L (14-59); AST 83 U/L (15-37); Albumin 1.8 g/dL (3.4-5.0); Alkaline Phosphatase 75 U/L (46-116); Anion Gap 12.2 mmol/L (3-11); BUN 47 mg/dL (7-18); Bilirubin, Total 0.7 mg/dL (0.2-1.0); CO2 20.8 mmol/L (21.0-32.0); Calcium 8.0 mg/dL (8.5-10.1); Chloride 106 mmol/L (98-107); Estimated GFR 26.48 (mL/min/1.73m2); Glucose 111 mg/dL (74-106); NT-proBNP 8101 pg/mL (<300); Potassium 3.9 mmol/L (3.5-5.1); Sodium 139 mmol/L (136-145); Total Protein 5.5 g/dL (6.4-8.2)
[2025-03-23] MEDS: Heparin 5,000 UNITS/ML VIAL 5000 UNITS SC (08:36)
[2025-03-23] MEDS: Magnesium Oxide 400 MG TAB PO (08:37)
[2025-03-23] MEDS: Potassium Chloride 10 MEQ TABCR PO (08:37)
--- NOTE | 2025-03-23 11:00 | PDOC.CMDIS ---
Date of service: 03/23/25 Time of Service: 11:01 LACE Index Scoring Tool Questions: Length of Stay (in days): 2 Was the patient admitted via the E.D.?: Yes Comorbidities: Liver or Renal Disease E.D. Visits: 1 Answers: Total Score: 11 Risk of Readmission: High Risk Care Management Discharge Plan Reason for Hospitalization: JAMAL Discharge Plan: Maggi will be discharged home with no new services. She will follow up with her PCP and plan of care and transport with family. C Patient/Family Education Needs: Review discharge instructions, limitations, follow up plan and discuss Ask Me Three
--- NOTE | 2025-03-23 15:11 | PDOC.CMPRO ---
Date of service: 03/23/25 Time of Service: 15:11 Care Management Progress Note Progress Note Text Progress Note Text: Maggi was lying in bed when CM met with her. She informed CM that she is hoping to be discharged today. She had an Echocardiogram today and may be discharged after, depending on the redults. Maggi shared that she continues to have diarrhea and that it is worse today than yesterday. Her renal function is improving (creatininr down to 2.1 from 3.6 and BUN went from 75 to 47). The etiology of the JAMAL is still unknown. Discharge Potential Discharge Needs: PCP F/U Appt Anticipated Barriers to Discharge: None Identified Patient/Family Education Needs: Review discharge instructions, discuss Ask Me Three Transportation: Private vehicle Plan: Anticipate Maggi will be discharged home with no new services when medically cleared. She will follow up with her PCP and plan of care and transport with family. CM will follow and continue to assess for discharge planning concerns. Social Determinants of Health Screening Social Determinants of health last assessed in clinic: 03/23/25 Will the Patient Participate in the Screening?: Yes Do you worry about having a steady place to live?: no Problems where you live: no known problems In the past 12 months, have you had to go without electric, gas, oil or water in your home?: no 1. Within the past 12 months, we worried whether our food would run out before we got money to buy more.: Never true 2. Within the past 12 months, the food we bought just didn't last and we didn't have money to get more.: Never true Has lack of transportation kept you from medical appointments or from doing things needed for daily living?: no Has anyone in your life made you feel unsafe or unsupported?: no How hard is it for you to pay for the very basics like food, housing, medical care, and heating? Would you say it is:: Not hard at all Do you want help finding or keeping work or a job?: I do not need or want help If for any reason you need help with day-to-day activities such as bathing, preparing meals, shopping, managing finances, etc., do you get the help you need?: I don?t need any help How often do you feel lonely or isolated from those around you?: Never Do you speak a language other than Gibraltarian at home?: No Does the patient want assistance with any of the above?: No
[2025-03-23] MEDS: Normal Saline Flush 10 ML SYR (15:16)
[2025-03-23] MEDS: Normal Saline Flush 10 ML SYR IVP (16:07)
--- NOTE | 2025-03-23 16:38 | DSE_ITS ---
Date of service: 03/23/25 Time of Service: 16:38 DS: Diagnosis Discharge Diagnosis (1) Acute kidney injury: Status: Acute (2) Acute hypokalemia: Status: Acute (3) Hypomagnesemia: Status: Acute (4) Pyelonephritis: Status: Acute Discharge Plan Disposition Patient Disposition: Home Condition: Stable Discharge Details Reason For Visit: JAMAL Admit Date/Time: 03/21/25 14:19 Admit Provider: Keaton Borja Attending Provider: Keaton Borja Primary Care Provider: Erika More Hospital Course Hospital Course: 59-year-old female who was admitted to the ED on the for acute kidney i njury. Patient had multiple episodes of nausea and vomiting prior to admission. While in the ED it was noted to have pyelonephritis and was subsequently admitted to the hospital service. Over the ensuing 3 days patient's renal function did improve to the point where it felt safe to send her home. While she was here since noted to have an elevated BNP and an echocardiogram was done. Patient's echocardiogram was essentially benign and did not look like he was contributing to her prerenal dysfunction. Reviewing other labs she was noted to have mild hyponatremia and elevated MCV which can be worked up in the outpatient setting. Her hypokalemia had resolved on admission her BUN and creatinine were 73 and 3.3 at on discharge 47 and 2.1. It is apparent the patient follow-up with PCP in 5 to 7 days and have repeat labs. She was also noted to have mild transaminitis. Of note she did have hematuria on open recommend follow-up UA and 4 to 6 weeks to ensure resolution. History of Present Illness Chief Complaint: n/v Narrative: This is a 59-year-old female who presents to the ED with multiple episodes of nausea and vomiting. While she was in the ED she was noted to have significant elevations in her BUN and creatinine was admitted for acute kidney injury. While she was also in the ED CT was done of her abdomen which indicated pyelonephritis and while she was down there she was treated with IV fluids as well as antibiotics. Upon my interview with her she stated she did have some fevers and chills. Patient denied significant abdominal pain though. Patient denied any dysuria or polyuria as well. In reviewing her diagnostic data her white count is 8.6 her sodium 133 potassium 2.8 BUN and creatinine 73 and 2.3 respectively. On the doctor over 24 hours. Creatinine 1.3. Magnesium was low at 1.1. Mild transaminitis was noted significant proteinuria was noted as well as blood small leukocyte esterase as well. In terms of imaging abdominal pelvic CT as mentioned showed pyelonephritis blood cultures are pending. Assessment and plan (1) Acute kidney injury: Status: Acute Assessment and plan: cw ivf, recheck labs in am. Prerenal most likely with nv (2) Acute hypokalemia: Status: Acute Assessment and plan: most likely 2/2 nv add zofran prn (3) Hypomagnesemia: Status: Acute Assessment and plan: replace (4) Pyelonephritis: Status: Acute Assessment and plan: vanc and zosyn. Pharmacy consult pending Recommendations for Follow Up Recommended tests to be ordered by follow up provider: Recommend follow up in 3- 5 days with cbc/cmp with results to PCP UA in 4-6 weeks to ensure resolution of hematuria Home Meds and New Rx's Prescriptions: New potassium chloride [Klor-Con M10] 10 mEq Tablet,Er Particles/Crystals 10 meq PO BID 10 Days Qty: 20 0RF ciprofloxacin HCl 500 mg tablet 500 mg PO BID 7 Days Qty: 14 0RF Continued hydrochlorothiazide 25 mg tablet 25 mg PO DAILY Qty: 90 3RF losartan 100 mg tablet 100 mg PO DAILY Qty: 90 3RF trazodone 50 mg tablet 50 mg PO QHS PRN (Reason: sleep) Qty: 90 3RF ibuprofen [Advil] 200 MG tablet 400 mg PO BID PRN Discharge Instructions Referrals: Erika More LUMBER DRIVER [Primary Care Provider, Medicine] Referral Note: follow up with PCP in 5-7 days Activity:: Activity as Tolerated Equipment/Supplies:: No Equipment Needed Diet:: As Tolerated Discharge Orders Discharge Orders: Discharge Order (Routine); Ordered 03/23/25 Ordered By: Keaton Borja DS: Summary Time Spent with Patient providing and/or coordinating discharge services: Greater than 30 minutes Status at Discharge Functional status at discharge: independent ambulation Overall status at discharge: patient is back to baseline Mental Status: mental status grossly normal Speech and Movement: speech and movement normal Mood: congruent mood Affect: normal affect Exam Narrative Exam Narrative: NCAT MMM EOMI PERRLA NO LAD NO JVD RRR NO MRG CTAB NO AMU [id number] NO CCE Psych Mental Status: mental status grossly normal Speech and Movement: speech and movement normal Mood: congruent mood Affect: normal affect DS: Data Vitals/I&O Vitals and I&O: Vital Signs Temperature 37.6 C H 03/23/25 15:17 Temperature Source Tympanic 03/23/25 15:44 Pulse 71 03/23/25 15:17 Pulse 73 03/23/25 15:17 Respiratory Rate 16 03/23/25 15:17 Respiratory Effort Normal 03/21/25 16:51 Respiratory Depth Normal 03/21/25 16:51 Respiratory Pattern Normal 03/21/25 16:51 Blood Pressure 124/82 03/23/25 15:17 Blood Pressure Mean 95 03/23/25 15:17 Blood Pressure Position Supine 03/21/25 10:51 Pulse Oximetry 95 03/23/25 15:17 Oxygen Delivery Method Room Air 03/23/25 15:44 Oxygen Flow Rate 0 03/23/25 15:44 Pain Level 7 03/21/25 13:21 Comment informed admitting provider 03/21/25 15:20 Intake & Output 03/22/25 03/23/25 03/23/25 23:59 11:59 23:59 Intake Total 4440.000 / 7277.500 3350 / 3600 250 / 3600 Output Total 2400 / 4750 200 / 200 Balance 2040.000 / 2527.500 3150 / 3400 250 / 3400 Weight 92.6 kg Intake: IV 4200.000 / 6917.500 3100 / 3100 Oral 240 / 360 250 / 500 250 / 500 Output: Urine 2400 / 4650 200 / 200 Other: Urine Color Light Eva Yellow Urine Appearance Cloudy Clear Sediment Urine Odor None Comment Mixed with stool medium unmeasured void, mixed with liquid stool Stool Size Moderate Small Moderate Stool Characteristics Soft Liquid Liquid Brown Data Completed and Pending Labs on day of discharge: Labs from last 24 hours 03/23/25 06:00 WBC 6.84 RBC 3.55 L Hgb 12.4 Hct 34.1 L MCV 96 H MCH 34.9 H MCHC 36.4 H RDW 12.4 Plt Count 115 L MPV 11.4 H Immature Gran % 0.4 Neutrophils % 73.8 Lymphocytes % 12.3 Monocytes % 10.7 Eosinophils % 1.9 Basophils % 0.9 Nucleated RBC % 0.0 Absolute Neutrophils 5.05 Absolute Lymphocytes 0.84 L Absolute Monocytes 0.73 Absolute Eosinophils 0.13 Absolute Basophils 0.06 Sodium 139 Potassium 3.9 Chloride 106 Carbon Dioxide 20.8 L Anion Gap 12.2 H BUN 47 H Creatinine 2.1 H D Est GFR (CKD-EPI 2020) 26.48 Glucose 111 H Calcium 8.0 L Total Bilirubin 0.7 AST 83 H ALT 60 H Alkaline Phosphatase 75 NT-Pro-B Natriuret Pep 8101 H Total Protein 5.5 L Albumin 1.8 L Preliminary micro results at discharge 03/21/25 10:40 Blood Blood Culture - Preliminary Escherichia coli 03/21/25 10:09 Blood Blood Culture - Preliminary Escherichia coli PFSH All Active Problems (Updated 03/21/25 @ 18:09 by Keaton Borja MD) Pyelonephritis (Acute) Hypocalcemia (Acute) Hypomagnesemia (Acute) Prolonged QT interval (Acute) Acute hypokalemia (Acute) Acute kidney injury (Acute) Hyperlipidemia (Acute) Pre-diabetes (Acute) Elevated bilirubin (Acute) 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 Owens Gastroesophageal reflux disease (Chronic 11/01/13) Essential hypertension (Acute 06/10/17) Cystocele, midline (Acute 05/07/17) Alcohol dependence in remission (Acute 07/02/17) Abnormal transaminases (Acute 01/03/15) labs done by Dr. Owens to f/u hydroxychloroquine Hypertension (Chronic) Anterior epistaxis (Acute) History of epistaxis (Acute) Maxillary sinus mass (Acute) Bleeding nose (Acute) Medical History Arthritis Surgical History Appendectomy 1999 History of 1992 Repair of inguinal hernia 1998 Family History Grandfather Heart disease Social History Smoking/Tobacco Use Status: Never Smoking risk assessment performed?: Yes Alcohol Intake: former Drug use: Never Substance use type: does not use Housing: house Do you feel safe at home: Yes Do you feel safe in your relationship?: Yes Time Spent with Patient Time Spent with Patient: 45-69 minutes Time was spent: preparing to see the patient(eg.review tests), obtaining and/or reviewing separately otained hiistory, ordering medications,tests, procedures, referring, communicating with other health before and after school daycare worker, indepentently interpreting results, counseling the patient and care coordination
== END 2025-03-23 17:20 | disposition home or self-care (01) | DRG 683 ==
LOC: ER 15:05 → ICU 16:38
PROVIDERS: Admitting Provider Hospitalist; Emergency Provider Emergency Medicine; PCP Nurse Practitioner; Responsible Provider Hospitalist; Visit Provider Hospitalist
DX: N17.9 Acute kidney failure, unspecified (principal); E87.1 Hypo-osmolality and hyponatremia; E87.6 Hypokalemia; E83.42 Hypomagnesemia; N10 Acute pyelonephritis; B96.20 Unspecified Escherichia coli [E. coli] as the cause of diseases classified elsewhere; R94.31 Abnormal electrocardiogram [ECG] [EKG]; E83.51 Hypocalcemia; D69.6 Thrombocytopenia, unspecified; R73.03 Prediabetes; E78.5 Hyperlipidemia, unspecified; M06.4 Inflammatory polyarthropathy; K21.9 Gastro-esophageal reflux disease without esophagitis; I10 Essential (primary) hypertension; F10.21 Alcohol dependence, in remission; R74.01 Elevation of levels of liver transaminase levels; R80.9 Proteinuria, unspecified; R31.9 Hematuria, unspecified
CPT/HCPCS: 00123; 36415; 51702; 80048; 80053; 82550; 86850; 86900; 86901; 87040; 87077; 93005; 96365; 96366; 96367; 96372; 96375; 99291; J1650; 71045; 74176; 80202; 81003; 81015; 83605; 83735; 83880; 84484; 85025; 87186; 93010; 93306; 99222; 99232; 99239; J0612; J1644; J2185; J2405; J2543; J3010; J3373; J3475; J3480; J3490

== ENCOUNTER 2025-03-31 16:13 | Emergency (ER) | payer SELFPAY ==
[2025-03-31] VITALS (18 sets, daily range): BP systolic 111–139; BP diastolic 75–97; PULSE 70–99; RESP 15–20; TEMP 36.8; O2SAT 93–97
[2025-03-31 16:40] LABS: Abs Immature Grans 0.02 10^3/uL (0.0-0.06); HCT 42.7 % (36.0-46.0); HGB 14.2 g/dL (11.2-15.7); Immature Grans % 0.2 %; MCH 33.8 pg (27.0-33.0); MCHC 33.3 % (32.0-36.0); MCV 102 fL (80-95); MPV 9.4 fL (8.0-11.0); Platelet Count 342 10^3/uL (130-400); RBC 4.20 10^6/uL (3.93-5.22); RDW 12.7 % (11.7-14.6); RDW-SD 47.7 fL; WBC 9.99 10^3/uL (4.4-10.8)
--- NOTE | 2025-03-31 16:53 | ED.GENADUL_ITS ---
Discharge Plan Disposition Patient Disposition: Home Condition: Stable Discharge Details Clinical Impression: Urinary tract infection, Acute kidney injury, Hypomagnesemia, Abnormal transaminases Primary Care Provider: Erika More ED Provider: Olivia Alexis Home Meds and New Rx's Prescriptions: New cephalexin 500 mg capsule 500 mg PO QID 9 Days Qty: 36 0RF No Action hydrochlorothiazide 25 mg tablet 25 mg PO DAILY Qty: 90 3RF losartan 100 mg tablet 100 mg PO DAILY Qty: 90 3RF trazodone 50 mg tablet 50 mg PO QHS PRN (Reason: sleep) Qty: 90 3RF potassium chloride [Klor-Con M10] 10 mEq Tablet,Er Particles/Crystals 10 meq PO BID 10 Days Qty: 20 0RF Discharge Instructions Instructions: Urinary Tract Infection, Adult ED Additional Instructions: You were seen in the emergency department today for evaluation of ongoing fatigue in the setting of a recent pyelonephritis, acute kidney injury, and E. coli bacteremia. In our department a full physical examination performed, had repeat laboratory studies that were quite reassuring today, though it does appear that you continue to have urinary tract infection. You were started on a new antibiotic, please take all of it until it is gone, even if you start to feel better. You had repeat blood cultures drawn and will be contacted if these are positive, in which case he will need to return to the emergency department for readmission. You continue to have elevation in your kidney function levels, but there is no sign that your kidneys have failed and you require dialysis. Please continue to maintain good hydration and follow-up with your primary care provider for repeat studies. Your magnesium was low and we have provided you with repletion through your IV. Your liver enzyme elevation is improving. Please follow-up with your primary care provider in the next few days to discuss this visit and any symptoms that change, worsen, or persist. Thank you for allowing us to be part of your care. HPI General Mode of arrival: ambulatory . Date/Time Provider Initiated Documentation: 03/31/25 16:13 . Limitations to Documentation: no limitations . Information obtained by: patient and old records reviewed . HPI Narrative: This is a 59-year-old female patient with a history of GERD, hyperlipidemia, prediabetes, hypertension, and recent admission to this hospital for kidney injury and pyelonephritis complicated by E. coli septicemia, presenting for reevaluation per her primary care provider given the positive blood cultures. The patient has had ongoing fatigue since her discharge on the , reports that her legs feel heavy. She has not experienced any fevers at home, but does feel cold intermittently. She has not had any pain in her abdomen, flank, nor urinary symptoms such as dysuria, hematuria, or urinary frequency. The patient was started on a course of ciprofloxacin and just took her last dose of a 7-day course last night. She was instructed to follow-up with primary care for recheck of her labs given the kidney injury, and her provider was concerned given her positive blood cultures on the of this month and requested ER evaluation. Related Data Home Medications ?Medication ?Instructions ?Recorded ?Confirmed hydrochlorothiazide 25 mg tablet 25 mg PO DAILY #90 ta bs 06/07/24 03/31/25 losartan 100 mg tablet 100 mg PO DAILY #90 tab-caps 06/07/24 03/31/25 trazodone 50 mg tablet 50 mg PO QHS PRN sleep #90 t abs 06/07/24 03/31/25 potassium chloride 10 mEq 10 meq PO BID 10 days #20 ta bs 03/23/25 03/31/25 tablet,extended release(part/cryst) (Klor-Con M) cephalexin 500 mg capsule 500 mg PO QID 9 days #36 cap s 03/31/25 Previous Rx's ?Medication ?Instructions ?Recorded hydrochlorothiazide 25 mg tablet 25 mg PO DAILY #90 ta bs 06/07/24 losartan 100 mg tablet 100 mg PO DAILY #90 tab-caps 06/07/24 trazodone 50 mg tablet 50 mg PO QHS PRN sleep #90 t abs 06/07/24 potassium chloride 10 mEq 10 meq PO BID 10 days #20 ta bs 03/23/25 tablet,extended release(part/cryst) (Klor-Con M) cephalexin 500 mg capsule 500 mg PO QID 9 days #36 cap s 03/31/25 Allergies Allergy/AdvReac Type Severity Reaction Status Date / Time adhesive Allergy Unknown hives Verified 03/31/25 15:29 twinings green tea Allergy Severe Anaphylaxsi Uncoded 03/31/25 15:29 s latex exam gloves Allergy rash Uncoded 03/31/25 15:29 General Stated Complaint: GenMedical JOSE ROBERTO: 3 Exam Narrative Exam Narrative: Gen: awake and alert, in no apparent distress. Appears well nourished. HEENT: PERRL. External ears and nose normal, mucous membranes moist. Neck: Supple, full range of motion, no observable masses Lungs: No increased work of breathing, lung sounds clear and equal bilaterally without wheezes, rhonchi, or rales. CV: Heart with regular rate and rhythm, no murmurs auscultated. Strong and symmetrical radial pulses. Abdomen: Soft, nondistended, non-tender to palpation. No rigidity, rebound tenderness, or guarding. MSK: No joint swelling, no redness. Full ROM without limitation, no external traumatic findings. No CVA tenderness Skin: No rashes or lesions to visualized skin. Normal color, warm, and dry. Neuro: Face symmetrical, 5/5 strength in all muscle groups x4 extremities. No sensory deficits. Ambulates with steady gait. Psych: Appropriate for situation. Course Vital Signs Vital signs: Vital Signs Temperature 36.8 C 03/31/25 16:14 Pulse 99 H 03/31/25 16:14 Respiratory Rate 20 03/31/25 16:14 Blood Pressure 139/97 H 03/31/25 16:14 Pulse Oximetry 95 03/31/25 16:14 Temperature 36.8 C 03/31/25 16:24 Temperature Source Oral 03/31/25 16:24 Pulse 99 H 03/31/25 16:24 Respiratory Rate 20 03/31/25 16:24 Blood Pressure 139/97 H 03/31/25 16:24 Blood Pressure Position Sitting 03/31/25 16:24 Pulse Oximetry 95 03/31/25 16:24 Oxygen Delivery Method Room Air 03/31/25 16:24 Oxygen Flow Rate 0 03/31/25 16:24 Pain Level 0 03/31/25 16:24 Lab/Test Results Lab/Test Results: 03/31/25 16:45 Blood Blood Culture - Pending 03/31/25 16:32 Blood Blood Culture - Pending Laboratory Tests Range/Units 03/31/25 16:32 WBC (4.4-10.8) 10^3/uL 9.99 RBC (3.93-5.22) 10^6/uL 4.20 Hgb (11.2-15.7) g/dL 14.2 Hct (36.0-46.0) % 42.7 MCV (80-95) fL 102 H MCH (27.0-33.0) pg 33.8 H MCHC (32.0-36.0) % 33.3 RDW (11.7-14.6) % 12.7 Plt Count (130-400) 10^3/uL 342 MPV (8.0-11.0) fL 9.4 Immature Gran % % 0.2 Neutrophils % % 60.5 Lymphocytes % % 30.1 Monocytes % % 7.2 Eosinophils % % 0.9 Basophils % % 1.1 Nucleated RBC % (0.0-0.3) % 0.0 Absolute Neutrophils (1.2-6.7) 10^3/uL 6.04 Absolute Lymphocytes (1.2-3.4) 10^3/uL 3.01 Absolute Monocytes (0.1-0.8) 10^3/uL 0.72 Absolute Eosinophils (0.0-0.7) 10^3/uL 0.09 Absolute Basophils (0.0-0.2) 10^3/uL 0.11 VBG Lactate (<or=2.0) mmol/L 1.3 Medical Decision Making This is a 59-year-old female patient presenting for evaluation of ongoing fatigue after positive blood cultures on 03/23. Differential includes but is not limited to infection including bacteremia, though the patient does not meet sepsis criteria at this time given her lack of fever, tachycardia, or hypotension. Certainly considered urinary tract infection and pyelonephritis given her recent history of same. The patient has no other localizing symptoms such as skin changes, abdominal pain, diarrhea, etc. Considered ongoing kidney injury, metabolic and electrolyte derangement, liver injury. No chest pain to suggest ACS, tolerating oral intake and have a lower concern for severe dehydration. We will obtain repeat laboratory studies to include CBC, CMP, magnesium, lactate, and urinalysis. Will also obtain new blood cultures to ensure that her E. coli bacteremia has cleared. On review of her culture data, the E. coli appears to be pansensitive, susceptibility to Cipro is not specifically listed but our antimicrobiome for this hospital reports a 92% susceptibility of E. coli in this region. At this time I do not see an indication to proceed with advanced imaging. - I independently interpreted the laboratory studies, which show no significant leukocytosis, anemia, or thrombocytopenia. The patient's renal function remains abnormal, BUN improved to 36, creatinine slightly increased to 2.9 up from 2.1 on discharge. No evidence for hyperkalemia or other severe metabolic derangement that would require urgent dialysis, and the patient is producing appropriate urine. Her magnesium is low to be low and she was provided with a 2 g repletion. Transaminitis noted but improving compared to priors. Urinalysis shows small blood, and pyuria is appreciated on her microscopy, with some bacteria. For this reason I do think it is reasonable to reinitiate antibiosis. I provided the patient with a dose of ceftriaxone and will utilize Keflex given the renal injury that would make Bactrim a less desirable choice. The patient's repeat blood cultures are pending and she understands that she may need to return to care if these are positive. However, with the lack of fever or hemodynamic instability, as well as a normal white blood cell count I do feel it is reasonable for this patient to trial outpatient management which is her desire. Additionally, I do not see indication for urgent renal replacement therapy and her kidney function is largely stable compared to her discharge levels. At this time, the patient has had a full medical evaluation and is safe for discharge to home. They are hemodynamically stable, ambulatory, and tolerating PO. They are understanding of the follow-up plan and return precautions. They left our facility without incident. Olivia Alexis MD [facility] All Active Problems (Updated 03/31/25 @ 18:46 by Olivia Alexis MD) Urinary tract infection (Acute) Elevated liver transaminase level (Acute) Elevated brain natriuretic peptide (BNP) level (Acute) Hypokalemia (Acute) Escherichia coli septicemia (Acute) Pyelonephritis (Acute) Hypocalcemia (Acute) Hypomagnesemia (Acute) Prolonged QT interval (Acute) Acute hypokalemia (Acute) Acute kidney injury (Acute) Hyperlipidemia (Acute) Pre-diabetes (Acute) Elevated bilirubin (Acute) 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 Owens Gastroesophageal reflux disease (Chronic 11/01/13) Essential hypertension (Acute 06/10/17) Cystocele, midline (Acute 05/07/17) Alcohol dependence in remission (Acute 07/02/17) Abnormal transaminases (Acute 01/03/15) labs done by Dr. Owens to f/u hydroxychloroquine Hypertension (Chronic) Anterior epistaxis (Acute) History of epistaxis (Acute) Maxillary sinus mass (Acute) Bleeding nose (Acute) Medical History Arthritis Surgical History Appendectomy 1999 History of 1992 Repair of inguinal hernia 1998 Family History Grandfather Heart disease Social History Smoking/Tobacco Use Status: Never Smoking risk assessment performed?: Yes Alcohol Intake: former Drug use: Never Substance use type: does not use Housing: house Do you feel safe at home: Yes Do you feel safe in your relationship?: Yes
[2025-03-31 17:00] LABS: ALT 74 U/L (14-59); AST 52 U/L (15-37); Albumin 3.7 g/dL (3.4-5.0); Alkaline Phosphatase 96 U/L (46-116); Anion Gap 11.0 mmol/L (3-11); BUN 36 mg/dL (7-18); Bilirubin, Total 0.9 mg/dL (0.2-1.0); CO2 26.0 mmol/L (21.0-32.0); Calcium 9.9 mg/dL (8.5-10.1); Chloride 99 mmol/L (98-107); Estimated GFR 17.97 (mL/min/1.73m2); Glucose 114 mg/dL (74-106); Magnesium 1.5 mg/dL (1.8-2.4); Potassium 4.1 mmol/L (3.5-5.1); Sodium 136 mmol/L (136-145); Total Protein 9.5 g/dL (6.4-8.2)
[2025-03-31] MEDS: MAGNESIUM SULFATE 2 GM/50 ML BAG IV_INF (17:21)
[2025-03-31 17:46] LABS: Glucose Negative (Negative)
[2025-03-31 18:08] LABS: C & S Indicated? Yes
[2025-03-31] MEDS: cefTRIAXone 1 GM/50 ML BAG IVPB (19:09)
== END 2025-03-31 19:44 | disposition home or self-care (01) ==
PROVIDERS: Emergency Provider Emergency Medicine; PCP Nurse Practitioner
DX: N39.0 Urinary tract infection, site not specified (principal); N17.9 Acute kidney failure, unspecified; E83.42 Hypomagnesemia; R74.01 Elevation of levels of liver transaminase levels
CPT/HCPCS: 80053; 87040; 96365; 96366; 96367; 99284; 81003; 81015; 83605; 83735; 85025; 87086; 99283; J0696; J3475

== ENCOUNTER 2025-04-19 03:31 | Outpatient (CLI) | payer SELFPAY ==
[2025-04-19 10:17] LABS: ALT 32 U/L (14-59); AST 27 U/L (15-37); Albumin 4.0 g/dL (3.4-5.0); Alkaline Phosphatase 69 U/L (46-116); Anion Gap 7.5 mmol/L (3-11); BUN 27 mg/dL (7-18); Bilirubin, Total 0.8 mg/dL (0.2-1.0); CO2 31.5 mmol/L (21.0-32.0); Calcium 10.5 mg/dL (8.5-10.1); Chloride 101 mmol/L (98-107); Estimated GFR 29.86 (mL/min/1.73m2); Glucose 110 mg/dL (74-106); Potassium 3.7 mmol/L (3.5-5.1); Sodium 140 mmol/L (136-145); Total Protein 8.8 g/dL (6.4-8.2)
[2025-04-19 10:27] LABS: NT-proBNP 98 pg/mL (<300)
== END 2025-04-19 03:32 | disposition home or self-care (01) ==
LOC: LBO 03:31
PROVIDERS: PCP Nurse Practitioner; Referring Provider Family Medicine; Visit Provider Family Medicine
DX: N17.9 Acute kidney failure, unspecified (principal); E87.6 Hypokalemia; E83.42 Hypomagnesemia; E83.51 Hypocalcemia; R79.89 Other specified abnormal findings of blood chemistry
CPT/HCPCS: 36415; 80053; 83880

== ENCOUNTER 2025-05-11 20:27 | Outpatient (CLI) | payer SELFPAY ==
[2025-05-11 08:55] LABS: Abs Immature Grans 0.01 10^3/uL (0.0-0.06); HCT 37.2 % (36.0-46.0); HGB 12.5 g/dL (11.2-15.7); Immature Grans % 0.2 %; MCH 31.6 pg (27.0-33.0); MCHC 33.6 % (32.0-36.0); MCV 94 fL (80-95); MPV 9.5 fL (8.0-11.0); Platelet Count 238 10^3/uL (130-400); RBC 3.95 10^6/uL (3.93-5.22); RDW 12.4 % (11.7-14.6); RDW-SD 43.0 fL; WBC 6.13 10^3/uL (4.4-10.8)
[2025-05-11 09:29] LABS: ALT 26 U/L (14-59); AST 24 U/L (15-37); Albumin 3.8 g/dL (3.4-5.0); Alkaline Phosphatase 57 U/L (46-116); Anion Gap 8.3 mmol/L (3-11); BUN 31 mg/dL (7-18); Bilirubin, Total 0.9 mg/dL (0.2-1.0); CO2 29.7 mmol/L (21.0-32.0); Calcium 10.4 mg/dL (8.5-10.1); Chloride 102 mmol/L (98-107); Estimated GFR 34.12 (mL/min/1.73m2); Glucose 126 mg/dL (74-106); Magnesium 1.6 mg/dL (1.8-2.4); Potassium 3.9 mmol/L (3.5-5.1); Sodium 140 mmol/L (136-145); Total Protein 8.2 g/dL (6.4-8.2)
== END 2025-05-11 20:28 | disposition home or self-care (01) ==
LOC: LBO 20:27
PROVIDERS: Absent Provider Family Medicine; PCP Nurse Practitioner; Referring Provider Family Medicine; Visit Provider Family Medicine
DX: R74.8 Abnormal levels of other serum enzymes (principal); R74.01 Elevation of levels of liver transaminase levels; N17.9 Acute kidney failure, unspecified; I12.9 Hypertensive chronic kidney disease with stage 1 through stage 4 chronic kidney disease, or unspecified chronic kidney disease; N18.4 Chronic kidney disease, stage 4 (severe); E87.6 Hypokalemia; E83.42 Hypomagnesemia; Z13.9 Encounter for screening, unspecified
CPT/HCPCS: 36415; 80053; 83735; 85025

== ENCOUNTER 2025-07-18 03:29 | Outpatient (CLI) | payer SELFPAY ==
[2025-07-18 09:54] LABS: HCT 33.7 % (36.0-46.0); HGB 11.3 g/dL (11.2-15.7); MCH 29.5 pg (27.0-33.0); MCHC 33.5 % (32.0-36.0); MCV 88 fL (80-95); MPV 10.1 fL (8.0-11.0); Platelet Count 232 10^3/uL (130-400); RBC 3.83 10^6/uL (3.93-5.22); RDW 13.4 % (11.7-14.6); RDW-SD 43.0 fL; WBC 6.04 10^3/uL (4.4-10.8)
[2025-07-18 11:05] LABS: Anion Gap 8.8 mmol/L (3-11); BUN 29 mg/dL (7-18); CO2 29.2 mmol/L (21.0-32.0); Calcium 10.0 mg/dL (8.5-10.1); Chloride 101 mmol/L (98-107); Ferritin 370 ng/mL (8-252); Glucose 88 mg/dL (74-106); Magnesium 1.5 mg/dL (1.8-2.4); Potassium 3.3 mmol/L (3.5-5.1); Sodium 139 mmol/L (136-145)
[2025-07-18 11:17] LABS: ALT 22 U/L (14-59); AST 18 U/L (15-37)
== END 2025-07-18 03:30 | disposition home or self-care (01) ==
DX: R73.03 Prediabetes (principal); R74.01 Elevation of levels of liver transaminase levels; I12.9 Hypertensive chronic kidney disease with stage 1 through stage 4 chronic kidney disease, or unspecified chronic kidney disease; E83.51 Hypocalcemia; E87.6 Hypokalemia; N12 Tubulo-interstitial nephritis, not specified as acute or chronic; Z77.011 Contact with and (suspected) exposure to lead
CPT/HCPCS: 36415; 80048; 85027; 82728; 83655; 83735; 84450; 84460

== ENCOUNTER 2025-08-05 02:21 | Outpatient (CLI) | payer SELFPAY ==
[2025-08-05 08:47] LABS: Abs Immature Grans 0.01 10^3/uL (0.0-0.06); HCT 34.1 % (36.0-46.0); HGB 11.6 g/dL (11.2-15.7); Immature Grans % 0.2 %; MCH 29.7 pg (27.0-33.0); MCHC 34.0 % (32.0-36.0); MCV 87 fL (80-95); MPV 9.8 fL (8.0-11.0); Platelet Count 218 10^3/uL (130-400); RBC 3.90 10^6/uL (3.93-5.22); RDW 13.0 % (11.7-14.6); RDW-SD 41.0 fL; WBC 5.65 10^3/uL (4.4-10.8)
[2025-08-05 08:52] LABS: ESR 16 mm/hr (0-30)
[2025-08-05 09:42] LABS: Uric Acid 8.4 mg/dL (3.1-7.8)
[2025-08-05 09:43] LABS: C-Reactive Protein < 0.50 mg/dL (<=0.50); Magnesium 1.5 mg/dL (1.6-2.6)
[2025-08-05 09:45] LABS: ALT 12 U/L (10-49); AST 20 U/L (<34); Albumin 4.5 g/dL (3.2-5.0); Alkaline Phosphatase 64 U/L (46-116); Anion Gap 8.7 mmol/L (3-11); BUN 29 mg/dL (9-23); Bilirubin, Total 0.60 mg/dL (0.2-1.2); CO2 28.3 mmol/L (20.0-31.0); Calcium 10.3 mg/dL (8.3-10.6); Chloride 104 mmol/L (98-107); Glucose 96 mg/dL (74-106); Potassium 3.4 mmol/L (3.5-5.1); Sodium 141 mmol/L (136-145); Total Protein 7.9 g/dL (5.7-8.2)
[2025-08-05 10:26] LABS: Creatine Kinase 27 U/L (34-145)
== END 2025-08-05 02:22 | disposition home or self-care (01) ==
DX: M25.59 Pain in other specified joint (principal); M35.3 Polymyalgia rheumatica; E83.42 Hypomagnesemia
CPT/HCPCS: 36415; 80053; 82550; 85652; 86200; 83735; 84550; 85025; 86038; 86140; 86431